=== PATIENT | female | born 1995 | race Caucasian/White ===

== ENCOUNTER 2020-07-01 11:44 | Outpatient (RCR) | payer OTHER, SELFPAY ==
[2020-05-26 08:17] VITALS: BMI 22.2
== END 2020-07-19 23:59 ==
LOC: EMPH 11:44
PROVIDERS: PCP Family Medicine; Referring Provider Family Medicine Geriatric Medicine; Visit Provider Family Medicine Geriatric Medicine
DX: Z03.818 Encounter for observation for suspected exposure to other biological agents ruled out (principal)
CPT/HCPCS: 87426

== ENCOUNTER 2020-08-05 11:21 | Outpatient (RCR) | payer OTHER, SELFPAY ==
[2020-05-26 08:17] VITALS: BMI 22.2
== END 2020-08-19 23:59 ==
LOC: EMPH 11:21
PROVIDERS: PCP Family Medicine; Referring Provider Family Medicine Geriatric Medicine; Visit Provider Family Medicine Geriatric Medicine
DX: Z03.818 Encounter for observation for suspected exposure to other biological agents ruled out (principal)
CPT/HCPCS: 87426

== ENCOUNTER 2020-09-30 10:52 | Outpatient (RCR) | payer OTHER, SELFPAY ==
[2020-05-26 08:17] VITALS: BMI 22.2
[2020-09-15 14:51] VITALS: BMI 22.2
== END 2020-10-17 23:59 ==
LOC: EMPH 10:52
PROVIDERS: PCP Family Medicine; Referring Provider Family Medicine Geriatric Medicine; Visit Provider Family Medicine Geriatric Medicine
DX: Z03.818 Encounter for observation for suspected exposure to other biological agents ruled out (principal)
CPT/HCPCS: 87426

== ENCOUNTER → 2020-10-19 13:58 | Outpatient (CLI) | payer OTHER, SELFPAY ==
[2020-10-14 14:33] VITALS: BMI 22.4
[2020-10-19 14:13] LABS: Absolute Lymphocyte Count 2.35 X10^3/uL (0.83-4.51); Absolute Neutrophil Count 8.6 X10^3/uL (2.0-7.7); Basophil# 0.03 X10^3/uL; Basophil% 0.3 % (0-1); Eosinophil# 0.11 X10^3/uL; Eosinophils% 0.9 % (0-5); Hematocrit 35.6 % (37-47); Hemoglobin 12.5 g/dL (12.0-15.0); Lymphocyte # 2.35 X10^3/ul (4.0); Mean Corp Hgb Conc 35.1 g/dL (32-36); Mean Corpuscular Hgb 30.5 pg (27.0-32.0); Mean Corpuscular Volume 86.8 fL (81-99); Mean Platelet Vol. 9.4 fl (6.2-12.0); Monocyte# 0.64 X10^3/uL; Monocyte% 5.4 % (0-10); NRBC Flagged by Analyzer 0 % (0-5); Neutrophil # 8.59 X10^3/uL (2.7-7.7); Neutrophil % 73.1 % (47-70); Platelet Count 261 K/mm3 (150-450); RBC Distribution Width SD 38.3 fl (35.1-43.9); White Blood Count 11.8 K/mm3 (4.4-11.0)
[2020-10-19 15:15] LABS: HIV - WCH Non-Reactive (Nonreactive); Hepatitis B Surface Antigen Non-Reactive (Nonreactive); Hepatitis C Antibody Non-Reactive (Nonreactive); Rubella IgG Reactive (Nonreactive)
[2020-10-21 13:38] LABS: Syphilis Antibodies Non-reactive
== END ==
PROVIDERS: PCP Family Medicine; Referring Provider Obstetrics & Gynecology; Visit Provider Obstetrics & Gynecology
DX: Z34.90 Encounter for supervision of normal pregnancy, unspecified, unspecified trimester (principal)
CPT/HCPCS: 36415; 85025; 86703; 86762; 86803; 86850; 86900; 86901; 87340

== ENCOUNTER → 2020-12-09 12:26 | Outpatient (CLI) | payer OTHER, SELFPAY ==
[2020-11-11 15:41] VITALS: BMI 22.9
--- NOTE | 2020-12-09 12:28 | US_ITS ---
STUDY: SECOND AND THIRD TRIMESTER OBSTETRICAL ULTRASOUND REASON FOR EXAM: Female, 25 years old Anatomy LMP: Unknown. TECHNIQUE: Transabdominal and Transvaginal TECHNICAL QUALITY: Adequate. PRIOR ULTRASOUND: None. FINDINGS: There is a single intrauterine fetus. The fetus is in a cephalic presentation. There is demonstrated cardiac activity with a heart rate of 155 bpm. There is a normal amniotic fluid volume. The largest amniotic fluid pocket measures 3.3 cm. The placenta is anterior in location and is not low lying. There are Grade 0 placental changes. The cervix measures 4.0 cm in length. The bilateral adnexal regions are normal. BIOMETRY: BPD: 4.7 cm: 20 weeks, 2 days HC: 17.8 cm: 20 weeks, 1 days AC: 14.2 cm: 19 weeks, 4 days FL: 3.4 cm: 20 weeks, 3 days age by current US: 20 weeks, 1 days. ALEXANDR by current US: April 25, 2021. Estimated weight: 331 grams, +/- 50 grams, 27 %. Age by LMP: 20 weeks, 3 days. ALEXANDR by LMP: April 27, 2021. ANATOMY: Cranium: Normal lateral ventricles. Normal choroid plexus. Normal cerebellum. Normal cisterna magna. Normal face, nose and lips. Chest: Normal 4-chamber heart. Abdomen/Pelvis: Normal diaphragm. Normal stomach. Normal abdominal wall. Normal cord insertion. Normal 3 vessel cord. Normal kidneys. Normal bladder. Spine: Normal cervical spine. Normal thoracic spine. Normal lumbar spine. Normal sacrum. Extremities: Normal bilateral upper extremities. Normal bilateral lower extremities. US/OB Anatomy Scan IMPRESSION: Single intrauterine gestation 20 weeks 1 day with estimated date April 25, 2021. No anomalies on routine anatomic survey. Electronically Signed: Myke Alvarado MD at 16:48 EDT , Service support ,
== END ==
PROVIDERS: PCP Family Medicine; Referring Provider Obstetrics & Gynecology; Visit Provider Obstetrics & Gynecology
DX: Z34.90 Encounter for supervision of normal pregnancy, unspecified, unspecified trimester (principal)
CPT/HCPCS: 76805; 76817

== ENCOUNTER → 2021-02-03 12:45 | Outpatient (CLI) | payer OTHER, SELFPAY ==
[2021-01-06 13:06] VITALS: BMI 23.8
[2021-02-03 13:10] LABS: Absolute Lymphocyte Count 1.98 X10^3/uL (0.83-4.51); Absolute Neutrophil Count 8.1 X10^3/uL (2.0-7.7); Basophil# 0.04 X10^3/uL; Basophil% 0.4 % (0-1); Eosinophil# 0.13 X10^3/uL; Eosinophils% 1.2 % (0-5); Hematocrit 33.5 % (37-47); Hemoglobin 11.5 g/dL (12.0-15.0); Lymphocyte # 1.98 X10^3/ul (0.83-4.51); Lymphocyte % 18.2 % (19-41); Mean Corp Hgb Conc 34.3 g/dL (32-36); Mean Corpuscular Hgb 30.7 pg (27.0-32.0); Mean Corpuscular Volume 89.3 fL (81-99); Mean Platelet Vol. 9.2 fl (6.2-12.0); Monocyte# 0.58 X10^3/uL; Monocyte% 5.3 % (0-10); NRBC Flagged by Analyzer 0 % (0-5); Neutrophil # 8.08 X10^3/uL (2.7-7.7); Neutrophil % 74.3 % (47-70); Platelet Count 252 K/mm3 (150-450); RBC Distribution Width CV 12.2 % (11.6-14.6); RBC Distribution Width SD 39.1 fl (35.1-43.9); Red Blood Count 3.75 M/mm3 (4.2-5.4); White Blood Count 10.9 K/mm3 (4.4-11.0)
[2021-02-03 13:36] LABS: Glucose Challenge Gest 1H 50g 95 mg/dL (70-140)
[2021-02-03 14:00] LABS: Syphilis Antibodies Non-reactive
== END ==
LOC: LAB.FUTURE 12:45 → PAVLAB 12:47
PROVIDERS: PCP Family Medicine; Referring Provider Obstetrics & Gynecology; Visit Provider Obstetrics & Gynecology
DX: Z34.82 Encounter for supervision of other normal pregnancy, second trimester (principal)
CPT/HCPCS: 36415; 82950; 85025; 86780

== ENCOUNTER 2021-02-03 13:28 | Outpatient (RCR) | payer OTHER, SELFPAY ==
[2020-10-14 14:33] VITALS: BMI 22.4
[2021-01-06 13:06] VITALS: BMI 23.8
== END 2021-02-16 23:59 ==
LOC: EMPH 13:28
PROVIDERS: PCP Family Medicine; Referring Provider Family Medicine Geriatric Medicine; Visit Provider Family Medicine Geriatric Medicine
DX: Z03.818 Encounter for observation for suspected exposure to other biological agents ruled out (principal)
CPT/HCPCS: 87426

== ENCOUNTER → 2021-03-31 16:42 | Outpatient (CLI) | payer OTHER, SELFPAY ==
[2021-03-31 13:39] VITALS: BMI 23.8
== END ==
PROVIDERS: PCP Family Medicine; Referring Provider Obstetrics & Gynecology; Visit Provider Obstetrics & Gynecology
DX: Z34.82 Encounter for supervision of other normal pregnancy, second trimester (principal)
CPT/HCPCS: 87081

== ENCOUNTER → 2021-04-15 14:52 | Outpatient (CLI) | payer OTHER, SELFPAY ==
--- NOTE | 2021-04-15 15:03 | US_ITS ---
STUDY: SECOND AND THIRD TRIMESTER OBSTETRICAL ULTRASOUND - LIMITED REASON FOR EXAM: Female, 26 years old. Date and size discrepancy. LMP: 07/19/2020. PRIOR ULTRASOUND: 12/09/2020. TECHNIQUE: Transabdominal TECHNICAL QUALITY: Adequate. FINDINGS: There is a single intrauterine fetus. The fetus is in a cephalic presentation. There is demonstrated cardiac activity with a heart rate of 166 bpm. There is a normal amniotic fluid volume. The largest amniotic fluid pocket measures 2.73 cm. The amniotic fluid index (MILA) is 9.17 cm. The placenta is anterior in location and is not low lying. There are Grade 2 placental changes. The cervix measures 2.7 cm in length. BIOMETRY: BPD: 9.11 cm: 36 weeks, 6 days HC: 33.25 cm: 37 weeks, 6 days AC: 29.93 cm: 33 weeks, 6 days FL: 7.25 cm: 37 weeks, 0 days Age by LMP: 30 weeks, 2 days. ALEXANDR by LMP: 04/27/2021. age by prior US: 38 weeks, 4 days. ALEXANDR by prior US: 04/25/2021. age by current US: 36 weeks, 2 days. ALEXANDR by current US: 05/11/2020. Estimated weight: 2690 grams, +/- 403 grams, 7 percentile. Gender: Indeterminant US/OB Limited With Biometrics IMPRESSION: 1. Live single intrauterine at 36 weeks, 2 days. ALEXANDR is 05/11/2021. This is 2 weeks behind expected gestational age by prior ultrasound. 2. EFW 2690 g. This is at the 7th percentile. 3. MILA of 9.17 cm. 4. Anterior grade 2 placenta 5. Vertex presentation Electronically Signed: Beto Doty DO at 16:19 EDT Tel [phone], Service support ,
== END ==
PROVIDERS: Visit Provider Obstetrics & Gynecology
DX: O26.843 Uterine size-date discrepancy, third trimester (principal); Z3A.36 36 weeks gestation of pregnancy
CPT/HCPCS: 76816

== ENCOUNTER 2021-04-16 06:48 | Inpatient (IN) | payer OTHER, SELFPAY ==
[2021-03-31 13:39] VITALS: BMI 23.8
[2021-04-16] VITALS (39 sets, daily range): BP systolic 94–129; BP diastolic 53–81; PULSE 66–98; TEMP 36.2–37.1; O2SAT 94–100; BMI 27.4
[2021-04-16] MEDS: Lactated Ringers 1,000 ML 50 ML IV (08:03)
[2021-04-16 08:17] LABS: Absolute Lymphocyte Count 1.86 X10^3/uL (0.83-4.51); Absolute Neutrophil Count 7.2 X10^3/uL (2.0-7.7); Basophil# 0.03 X10^3/uL; Basophil% 0.3 % (0-1); Eosinophil# 0.15 X10^3/uL; Eosinophils% 1.5 % (0-5); Hematocrit 35.6 % (37-47); Hemoglobin 12.1 g/dL (12.0-15.0); Lymphocyte # 1.86 X10^3/ul (0.83-4.51); Lymphocyte % 18.5 % (19-41); Mean Corpuscular Hgb 30.3 pg (27.0-32.0); Mean Corpuscular Volume 89.2 fL (81-99); Monocyte# 0.78 X10^3/uL; Monocyte% 7.7 % (0-10); NRBC Flagged by Analyzer 0 % (0-5); Neutrophil # 7.19 X10^3/uL (2.7-7.7); Neutrophil % 71.4 % (47-70); Platelet Count 241 K/mm3 (150-450); RBC Distribution Width CV 12.5 % (11.6-14.6); RBC Distribution Width SD 40.9 fl (35.1-43.9); Red Blood Count 3.99 M/mm3 (4.2-5.4); White Blood Count 10.1 K/mm3 (4.4-11.0)
[2021-04-16] MEDS: 0.9% Normal Saline Single 100 ML IV.SOLN. INTRA-UTER (08:21)
[2021-04-16] MEDS: Oxytocin 30 units/NS 500 ml 30 UNITS/500 ML IV.SOLN IV (08:56)
[2021-04-16 10:01] LABS: Chlamydia Trachomatis by PCR Negative (Negative); Neisserai gonorrhoeae by PCR Negative (Negative); Probe Check PASS; Sample Adequacy Control PASS; Specimen Processing Control PASS
[2021-04-16] MEDS: Lactated Ringers 500 ML 999 ML IV ×3 (13:32→19:26)
--- NOTE | 2021-04-16 14:31 | HP.PCM.OB_ITS ---
HPI - General General Date of Admission: 04/16/21 HPI Narrative AMBIKA SANCHES, is a 26 F who presents secondary to IUGR diagnosed yesterday in office. Fundal height was low and growth ultrasound showed MILA of 9 cm and overall growth of 6th percentile. Recommendation to proceed with delivery. She denies any vaginal bleeding loss of fluid and admits good movement. Maternal Data Information ALEXANDR Calculator Estimated Delivery Date Method Current WG Current Estimate 04/25/21 LMP (Certain) 38w 5d PFSH PFSH Medical History Asthma History of tetanus, diphtheria, and acellular pertussis booster vaccination (Tdap) Seasonal allergies Home Medications loratadine 10 mg capsule 10 mg PO DAILY 05/26/20 [History Last Taken 04/16/21 06:00] multivitamin 1 tab PO DAILY 05/26/20 [History Last Taken 04/16/21 06:00] Allergy/AdvReac Type Severity Reaction Status Date / Time amoxicillin [From Augmentin] Allergy Unknown Verified 04/16/21 08:36 clavulanic acid Allergy Unknown Verified 04/15/21 13:22 [From Augmentin] tree nut Allergy Hives Verified 04/15/21 13:22 Family History Mother Hypertension Endometrial cancer Father Hypertension Surgical History H/O removal of cyst [place] teeth extracted Social History adopted: No household members: spouse and family housing: house current occupational status: employed current occupation: [employer]- [employer] pets and animals: Yes Smoking Status: Never smoker second hand exposure: No alcohol intake: current alcohol intake frequency: holidays/special occasions only details: not while substance use type: does not use seatbelt use: always do you feel safe at home: Yes additional social history: - Favian- Rebtel History 2 Elective abortions Hx Para 0 Spontaneous abortions 1 Hx # Term Pregnancies Ectopic pregnancies Hx # Pregnancies Multiple births # of living children 0 Visit Details Expected Delivery Route/Plan Labor Preferences- CB/BF classes: planned 04/02 labor support person: Favian labor intervention preferences: open to standard interventions pain management options preferred: epidural cut cord/dad catch: cord maybe : yes PP control planned: discussed discussed possible routes of delivery and associated risks: discussed possible delivery modalities and possible indications for each including R/B/A of , VAVD, FAVD, and CS. questions answered. special requests: [] Plans flu vaccine: yes tdap vaccine: given rhogam: na LARC form signed: yes movement and labor precautions reviewed. Problem list reviewed and updated with the most current plan of care details and appropriate orders placed. Relevant counseling for the gestational age provided. Continue routine care and follow up unless otherwise noted in visit notes/problem list details OB Flowsheet Initial Weight: Not Recorded Date -?-?-?-?-?-?-?-?-?-?-?-?- EGA Weight BP Urine Prot -?-?-?-?-?-?-?-?-?-?-?-?- Glucose FHR FuHt Pres Dilation -?-?-?-?-?-?-?-?-?-?-?-?- Effaced St Visit Note 10/14/20 -?-?-?-?-?-?-?-?-?-?-?-?- 12w 3d 141 lb 4 oz 136/82 Nega tive -?-?-?-?-?-?-?-?-?-?-?-?- Negative 160 -?-?-?-?-?-?-?-?-?-?-?-?- GP - [facility] from [facility]. Dated by US consistent with LMP. Has not had labs. 11/11/20 -?-?-?-?-?-?-?-?-?-?-?-?- 16w 3d 144 lb 6 oz 108/82 Nega tive -?-?-?-?-?-?-?-?-?-?-?-?- Negative 160 -?-?-?-?-?-?-?-?-?-?-?-?- GP - no cramping or bleeding. Anatomy scan ordered. PRR. 12/09/20 -?-?-?-?-?-?-?-?-?-?-?-?- 20w 3d 150 lb 4 oz 120/78 -?-?-?-?-?-?-?-?-?-?-?-?- 145 -?-?-?-?-?-?-?-?-?-?-?-?- GP - no LOF, VB, DFM, ctx. Anatomy scan today. Having a Girl! Planning Vicente for name - have both liked this name since they were dating. 01/06/21 -?-?-?-?-?-?-?-?-?-?-?-?- 24w 3d 153 lb 118/82 Negative -?-?-?-?-?-?-?-?-?-?-?-?- Negative 140 -?-?-?-?-?-?-?-?-?-?-?-?- SM- no vb lof cr maping doing well 02/03/21 -?-?-?-?-?-?-?--?-?-?-?-?- 28w 3d 158 lb 112/68 Negative -?-?-?-?-?-?-?-?-?-?-?-?- Negative 148 -?-?-?-?-?-?-?-?-?-?-?-?- MH-No VB, LOF. G ood FM. 28 wk labs, tdap and Larc 02/14/21 -?-?-?-?-?-?-?-?-?-?-?-?- 30w 0d 161 lb 4 oz 124/82 Nega tive -?-?-?-?-?-?-?-?-?-?-?-?- Negative 150 30 -?-?-?-?-?-?-?-?-?-?-?-?- GP - no LOF, VB, DFM, ctx. Discussed CB classes. 03/02/21 -?-?-?-?-?-?-?-?-?-?-?-?- 32w 2d 164 lb 112/80 Negative -?-?-?-?-?-?-?-?-?-?-?-?- Negative 145 32 -?-?-?-?-?-?-?-?-?-?-?-?- GP - no LOF, VB, DFM, ctx. Intermittent pelvic back pain - reassurance provided. 03/17/21 -?--?-?-?-?-?-?-?-?-?-?-?- 34w 3d 166 lb 120/84 Negative -?-?-?-?-?-?-?-?-?-?-?-?- Negative 135 33 -?-?-?-?-?-?-?-?-?-?-?-?- SM- no vb lof so me change in fm no reuglar ctx reviewed kick counts 03/31/21 -?-?-?-?-?-?-?-?-?-?-?-?- 36w 3d 169 lb 138/86 Negative -?-?-?-?-?-?-?-?-?-?-?-?- Negative 145 36 Cephalic 0 -?-?-?-?-?-?-?-?-?-?-?-?- GP - no LOF, VB, ctx. Movements now more subtle. NST done today. GP - no LOF, VB, ctx. Moveme nts now more subtle. NST done today. GBS done today 04/06/21 -?-?-?-?-?-?-?-?-?-?-?-?- 37w 2d 170 lb 4 oz 130/86 -?-?-?-?-?-?-?-?-?-?-?-?- 145 37 Cephalic 0 -?-?-?-?-?-?-?-?-?-?-?-?- GP - no LOF, VB, DFM, ctx. Denies complaints. 04/15/21 -?-?-?-?-?-?-?-?-?-?-?-?- 38w 4d 170 lb 122/84 Negative -?-?-?-?-?-?-?-?-?-?-?-?- Negative 145 35 Cephalic 0 .5 -?-?-?-?-?-?-?-?-?-?-?-?- 40 -1 Sm- no vb lof good fm no regular ctx. head low but cervix very posterior. plan growth us fro low FH 04/16/21 -?-?-?-?-?-?-?-?-?-?-?-?- 38w 5d 172 lb 9.951 oz 128/ 74 125/75 129/73 122/76 122/81 126/78 122/65 121/71 117/67 111/72 108/73 118/81 104/70 -?-?-?-?-?--?-?-?-?-?-?-?- -?-?-?-?-?-?-?-?-?-?-?-?- NST FHR Rate Baby A Baseline: 130 Variability:: Moderate Accelerations:: 15 x 15 Decelerations:: None NST Reactive:: Yes FHR Category:: Category I Uterine Activity:: irregular ROS Constitutional Constitutional: Reports systems reviewed and no addt'l complaints, except as documented Eyes Eyes: Denies change in vision ENT HEENT: Reports systems reviewed and no addt'l complaints, except as documented; Denies headache(s) Cardiovascular Cardiovascular: Reports systems reviewed and no addt'l complaints, except as documented; Denies chest pain or dyspnea Respiratory/Chest Respiratory/Chest: Reports systems reviewed and no addt'l complaints, except as documented Gastrointestinal Gastrointestinal: Reports systems reviewed and no addt'l complaints, except as documented; Denies abdominal pain Genitourinary Genitourinary: Reports systems reviewed and no addt'l complaints, except as doc umented, contractions Details: present (irregular) and movement Details: present; Denies dysuria or genital lesions Musculoskeletal Musculoskeletal: Reports systems reviewed and no addt'l complaints, except as documented Neurologic Neurologic: Reports systems reviewed and no addt'l complaints, except as documented Endocrine Endocrinology: Reports systems reviewed and no addt'l complaints, except as documented Vital Signs Vital Signs Vital Signs: 04/16/21 08:17 04/16/21 09:19 04/16/21 10:23 Temperature 98.2 F 98.1 F 98.6 F Temperature Source Temporal Temporal Pulse Rate 79 77 72 Blood Pressure 128/74 H 125/75 H 129/73 H BP Systolic 128 125 129 BP Diastolic 74 75 73 Pulse Ox 98 04/16/21 11:21 04/16/21 12:23 04/16/21 13:22 Temperature 98.2 F 97.9 F 98.2 F Temperature Source Temporal Pulse Rate 72 70 Blood Pressure 122/76 H 122/81 H BP Systolic 122 122 BP Diastolic 76 81 Pulse Ox 98 99 04/16/21 13:23 04/16/21 13:58 04/16/21 14:02 Temperature Temperature Source Pulse Rate 66 68 71 Blood Pressure 126/78 H 122/65 H BP Systolic 126 122 BP Diastolic 78 65 Pulse Ox 99 94 04/16/21 14:03 04/16/21 14:08 04/16/21 14:09 Temperature Temperature Source Pulse Rate 75 73 71 Blood Pressure 121/71 H 117/67 BP Systolic 121 117 BP Diastolic 71 67 Pulse Ox 100 100 04/16/21 14:13 04/16/21 14:18 04/16/21 14:23 Temperature 98.6 F Temperature Source Temporal Pulse Rate 72 77 80 Blood Pressure 111/72 108/73 118/81 H BP Systolic 111 108 118 BP Diastolic 72 73 81 Pulse Ox 100 99 99 04/16/21 14:28 Temperature Temperature Source Pulse Rate 72 Blood Pressure 104/70 BP Systolic 104 BP Diastolic 70 Pulse Ox Weight Weight: 172 lb 9.951 oz Body Mass Index (BMI) 27.4 Physical Exam Const alert, oriented x3, no apparent distress and healthy appearing HEENT normocephalic and moist oral mucous membranes Head and Scalp: atraumatic Neck full ROM, no lymphadenopathy, supple and thyroid normal General: trachea midline Lymph Lymphatic: no lymphadenopathy noted Chest inspection of chest normal Resp normal respiratory effort Cardio regular rate GI normal to inspection, nondistended, normoactive bowel sounds, soft to palpation and non-tender Inspection: gravid external exam normal Manual OB Exam: estimated gestational size appropriate, presentation cephalic, dilated, effaced and station Extremity normal to inspection General Extremity: Negative for edema Skin no rashes or lesions noted Neuro no focal motor deficits and deep tendon reflexes 2+ bilaterally Motor Exam: strength 5/5 throughout and clonus absent Psych mental status grossly normal Labs Labs Labs: Blood Type A POSITIVE Antibody Screen NEGATIVE Hct 35.6 % (37-47) L Hgb 12.1 g/dL (12.0-15.0) Pap Smear Negative Obstetrics US Syphilis Total Ab Non-reactive Rubella IgG Antibody Reactive (Nonreactive) Hep Bs Antigen Non-Reactive (Nonreactive) HIV 1&2 Antibody Non-Reactive (Nonreactive) C.trachomatis DNA (PCR) Negative (Negative) Glucose 1 Hr 50 gm 95 mg/dL (70-140) Assessment & Plan (1) IUGR (intrauterine growth restriction): (2) Uterine size-date discrepancy, third trimester: COMMENT: growth us ordered (3) History of tetanus, diphtheria, and acellular pertussis booster vaccination (Tdap): COMMENT: 02/03/21 (4) H/O miscarriage, currently : (5) Supervision of normal : QUALIFIERS: Trimester: second trimester Normal : other normal Qualified Code(s): Z34.82 - Encounter for supervision of other normal , second trimester COMMENT: PRR ALEXANDR 04/25/2021 Girl! Vicente Spouse: Favian PLAN: Patient presents IOL, plan management for with Pitocin Fletcher bulb AROM as needed. Pain management: Plans epidural. GBS negative. Management of any complications: None I have reviewed the [facility] and made any clinically relevant updates. (6) : QUALIFIERS: Weeks of gestation: 38 weeks Qualified Code(s): Z3A.38 - 38 weeks gestation of COMMENT: declines carrier and genetic. Anatomy US normal; GBS NEG
[2021-04-16] MEDS: fentaNYL-bupivacaine (epidural) 100 ML BAG EPIDURAL ×2 (14:32→19:08)
[2021-04-16] MEDS: Lactated Ringers 1,000 ML 200 ML IV ×2 (17:49→23:33)
[2021-04-16] MEDS: Ondansetron 4 MG/2 ML Vial IV (19:46)
[2021-04-16] MEDS: 0.9% Saline Lock 10 ML Syringe IV (19:46)
[2021-04-17] VITALS (35 sets, daily range): BP systolic 103–138; BP diastolic 59–87; PULSE 66–110; RESP 14–16; TEMP 36.3–37.2; O2SAT 95–100
[2021-04-17] MEDS: 0.9% Normal Saline 1,000 ML IV.SOLN. 400 ML INTRA-UTER
[2021-04-17] MEDS: Lactated Ringers 500 ML 999 ML IV (00:49)
[2021-04-17] MEDS: fentaNYL-bupivacaine (epidural) 100 ML BAG EPIDURAL ×2 (04:23→08:57)
[2021-04-17] MEDS: Lactated Ringers 1,000 ML 200 ML IV ×2 (05:11→09:38)
--- NOTE | 2021-04-17 06:01 | PCM.PN.BLA ---
Progress Note Patient now 4 to 5 cm 70 and 0 station. Inability to increase Pitocin overnight due to minimal variability. Overall reassuring category 2 tracing 130 minimal to moderate variability reactive with early D cells and occasional periodic variable decelerations. Will increase Pitocin
[2021-04-17] MEDS: Amnioinfusion- 0.9% NS 1,000 ML IV.SOLN. 75 ML INTRA-UTER (07:46)
[2021-04-17] MEDS: Sodium Citrate/Citric Acid 30 ML UDC PO (10:12)
--- NOTE | 2021-04-17 10:20 | OP.PCM_ITS ---
Assessment & Plan (1) Category II heart rate tracing during labor and delivery: COMMENT: persistent at 5/90/0 despite interventions, remote from delivery proceed with primary . pitocin x 26 hours and ROM x 16 hours. (2) IUGR (intrauterine growth restriction): (3) : QUALIFIERS: Weeks of gestation: 38 weeks Qualified Code(s): Z3A.38 - 38 weeks gestation of COMMENT: declines carrier and genetic. Anatomy US normal; GBS NEG (4) Supervision of normal : QUALIFIERS: Normal : other normal Trimester: second trimester Qualified Code(s): Z34.82 - Encounter for supervision of other normal , second trimester COMMENT: PRR ALEXANDR 04/25/2021 Girl! Vicente Spouse: Favian (5) delivery delivered: COMMENT: SM IOL IUGR cat II persistent 5 cm girl [facility] Maternal Data Information ALEXANDR Calculator Estimated Delivery Date Method Current WG Current Estimate 04/25/21 LMP (Certain) 38w 6d Final ALEXANDR Source: LMP Gestational age: 39 Details Operative Information Date of Procedure: 04/17/21 Pre-Operative Diagnosis: distress, see A/P Post-Operative Diagnosis: same Indications for : Distress Classification: CELENA Procedure Type: low transverse acid bath mixer #1: Leslye Ding Type of Anesthesia: Epidural Special Medications: none Antibiotic Given: Ancef 2 grams IV x1 and Zithromax 500 mg/5 mL X1 Drain: Fletcher to straight drain Fluids Replaced: crystalloid Findings Description of Procedure: patient admitted for IOL sec IUGR. underwent fb and pitocin, inadequate pitocin for significant portion of labor overnight due to minimal variability, then once reassuring status was confirmed pitocin increased and patient began active labor, developed recurrent variables and lates despite interventions and therefore decision was made for LTCS due to distress and remote from delivery. Patient was prepped and draped in the normal sterile fashion. Pfannenstiel skin incision was made with the scalpel and carried through to the underlying layer of fascia with the scalpel. Fascia was nicked in the midline and the incision extended laterally. The rectus bellies were dissected off superiorly and inferiorly with out complication both sharply and bluntly. The peritoneum was entered digitally. The incision was stretched and a low transverse uterine incision was made with the scalpel. The 's head was delivered atraumatically followed by the anterior and posterior shoulders without complication the rest of the delivered. The cord was clamped and cut and the was handed off to awaiting nurse. The placenta was delivered spontaneously immediately following and was noted to be intact and have a three- vessel cord. The uterus was exteriorized cleared of all clots and debris, and the incision was closed in a double layer closure using #1 Monocryl. The ovaries and fallopian tubes were noted to be within normal limits. The uterus was returned to the maternal abdomen and gutters were cleared of all clots and debris. The peritoneum was closed with 3-0 Monocryl in a running fashion. Gloves were changed prior to fascial closure. Fascia was closed with 0 PDS in a running fashion. Subcutaneous tissue was copiously irrigated and the skin was closed with 3-0 Monocryl in a subcuticular fashion. Mepilex dressing was applied without complication. Patient was taken to recovery in stable condition. It was discussed with the patient that based on the clinical information obtained during this encounter, combined with her history, at this time I would recommend cesareans for future deliveries if further pregnancies are desired. Amniotic Membrane Rupture Type: Artificial Amniotic Fluid Description: Clear Placental Delivery Description: Spontaneous Placenta Disposition: [facility] Cord Vessel Description: 3 Vessels Cord Entanglement: None Delayed Cord Clamping: Yes Complications Risks of Surgery Discussed w/Patient: Bleeding, Infection and Injury to surrounding structure(s) including bowel and bladder Complications: none Admit VTE Documentation VTE Present on Admission: No VTE Mechan Device Prophylaxis: SCD's Procedures Urinary/Genital [id number]: 23720 Delivery [facility]
[2021-04-17] MEDS: Cefazolin 2 GM in 0.9% Normal Saline 100 ML IV (10:22)
--- NOTE | 2021-04-17 10:37 | PLAC_PTH ---
PATIENT: AMBIKA SANCHES LOC: WP U#:[id number] AGE/SX: 26/F ROOM: WP004 RE04/16/[address]: Dr. Catrachita Farah MD : 1995 BED: 1 DIS: 04/19/2021 SPEC #: [id number] RECD: 04/18/21 11:45 STATUS: MARY REMichell #: [id number] MELLISA: 04/17/21 10:[address]: Catrachita Farah DEPT: SURGICAL PATHOLOGY RECD BY: Elie Goff ENTERED: 04/18/21 11:46 SP TYPE: PLACENTA OTHR DR: Deloris Primary Care Phys Tissues: Placenta, NOS Procedures: Surgery Specimen Level V HEADER OPERATION: Primary section PRE-OP DIAGNOSIS: Labor TISSUE SUBMITTED: Placenta MICROSCOPIC DIAGNOSIS Contreras placenta (350 gm): Umbilical cord ? trivascular with no inflammation. Placental membranes ? mild acute chorioamnionitis and deciduitis. Placental disc ? Kevin-Fadi change, focal chorioangiosis and intravillous congestion. AM:selina 04/20/2021 MICROSCOPIC DESCRIPTION Slides are reviewed. GROSS DESCRIPTION SPECIMEN: PLACENTA / CLINICAL INFORMATION: A. Weight: 2.46 kg B. Gestational Age: 38 weeks C. Sex: Female PLACENTAL WEIGHT (POST FIXATION): 350 gm PLACENTAL DIMENSIONS: 18 x 18 x 2.5 cm PLACENTAL SHAPE: Usual ovoid PLACENTAL WEIGHT FOR GESTATIONAL AGE: Within 10-99th percentile MEMBRANES - Present A. Insertion: Marginal B. Site of rupture from edge: At edge of placental disc C. Color of membrane: [place] D. Abnormalities: None UMBILICAL CORD - Present A. Color: [place] B. Insertion: Paracentral C. Length: 27 cm D. Diameter: 1 cm E. Number of vessels: Three F. Abnormalities: None PLACENTAL DISC - Present A. Color of surface: [place] B. surface abnormalities: None C. Maternal cotyledons: Intact with minimal tears D. Attached retro placental clot: No clot E. Cut surface: Dark red and spongy F. Lesions: None G. Separate clot: Absent SECTIONS SUBMITTED: 1. Membrane roll 2. Cord, maternal end 3. Cord, end 4. Placental disc, and maternal surfaces 5. Placental disc, and maternal surfaces 6. Placental disc, and maternal surfaces SJ:selina 04/19/21 TC:2 CPT: 90835
--- NOTE | 2021-04-17 11:04 | PCM.DC ---
Discharge Instructions Diet Discharge Diet: No restrictions Activity Discharge Activity: May Not Drive (for 2 weeks or while taking narcotic pain medications.), May Shower and May Take a Tub Bath (in 7 days) May shower in (days): 0 May resume sexual activity in: 4-6 weeks Weight Bearing Status: Full weight bearing Lifting Restrictions: 20 pounds Dressing / Incision Call your doctor if your incision/area has: Continuous Slow Oozing, Sudden Increased Bleeding, Increased Pain/ Swelling, Increased Redness and Foul Smelling Discharge Call your doctor if you observe: Fever of 101 or Higher and Using more than 1 pad per hour (for 2 hours) Suture Line Care: Avoid Pulling/Pushing and Avoid Pinching/Bending Cleanse incision/area with: Soap & Water and Keep Dressing Clean & Dry Follow Up Care Please Follow Up With: Catrachita Farah MD When: Call [phone] to make an appointment for an incision check in 1-2 weeks. Test Results: Test results from this visit will be discussed in further detail at your follow-up appointment, if applicable. Discharge Plan Admission Admit Date/Time: 04/16/21 06:48 Primary Reason for Your Visit: delivery Attending Provider: Catrachita Farah Primary Care Provider: Care Physician,Deloris Primary Discharge Orders/Prescriptions Prescriptions: New naproxen 250 MG tablet 250 - 500 mg PO Q8H PRN PRN (Reason: MILD PAIN) Qty: 30 RF: 1 oxycodone-acetaminophen [Percocet] 5-325 mg tablet 1 tab PO Q6H PRN (Reason: pain) 7 Days Qty: 20 RF: 0 Continued multivitamin Tablet 1 tab PO DAILY RF: 0 loratadine 10 mg capsule 10 mg PO DAILY RF: 0 Referrals / Follow Up: Care Physician,No Primary [Primary Care Provider] - Disposition Disposition (needs filled in before D/C Order can be placed): Home, Self Care
[2021-04-17] MEDS: Ketorolac 30 MG/ML Syringe IV ×2 (12:15→18:12)
[2021-04-17] MEDS: Oxytocin 30 units/NS 500 ml 30 UNITS/500 ML IV.SOLN 167 UNITS IV (12:48)
[2021-04-17] MEDS: Acetaminophen 500 MG Tablet 1000 MG PO ×2 (13:09→19:21)
[2021-04-17] MEDS: Lactated Ringers 1,000 ML 100 ML IV (16:15)
[2021-04-18] MEDS: 0.9% Saline Lock 10 ML Syringe IV ×2 (00:06→08:19)
[2021-04-18] MEDS: Ketorolac 30 MG/ML Syringe IV ×2 (00:07→08:18)
[2021-04-18] MEDS: Acetaminophen 500 MG Tablet 1000 MG PO ×4 (01:05→21:09)
[2021-04-18 01:06] VITALS: BP 138/73; PULSE 99; RESP 16; TEMP 36.6; O2SAT 98
--- NOTE | 2021-04-18 06:39 | PCM.PN.OB ---
Subjective Subjective Patient doing well without complaints. Tolerating PO. Ambulating and voiding without difficulty. feeding well. Denies chest pain, shortness of breath, calf pain/swelling, fevers, chills, lightheadedness. Objective Data Objective Data Vital Signs: Vital Signs Temp Pulse Resp BP Pulse Ox 97.9 F 99 16 138/73 H 98 04/18/21 01:06 04/18/21 01:06 04/18/21 01:06 04/18/21 01:06 04/18/21 01:06 Oxygen Delivery Method Room Air Weight: 172 lb 9.951 oz Body Mass Index (BMI) 27.4 Intake & Output: Intake and Output for Last 24 Hours 04/16/21 04/17/21 04/18/21 23:59 23:59 23:59 Intake Total 5369.26 / 5369.26 5615.94 / 5615.94 Output Total 3550 / 3550 4850 / 4850 1000 / 1000 Balance 1819.26 / 1819.26 765.94 / 765.94 -1000 / -1000 Lab / Micro Data Result Diagrams: 04/16/21 08:03 Micro: Microbiology 04/16/21 08:03 Nasal Secretion SARS-CoV-2 Antigen (Rapid) - Final ROS Constitutional Constitutional: Reports systems reviewed and no addt'l complaints, except as documented Cardiovascular Cardiovascular: Reports systems reviewed and no addt'l complaints, except as documented Respiratory/Chest Respiratory/Chest: Reports systems reviewed and no addt'l complaints, except as documented Gastrointestinal Gastrointestinal: Reports systems reviewed and no addt'l complaints, except as documented Physical Exam Const alert, oriented x3 and no apparent distress HEENT Head and Scalp: atraumatic Resp normal respiratory effort GI soft to palpation and non-tender Inspection: incision intact, healing well and drainage (none) Bimanual Exam - Vag & Uterus: uterus non-tender Uterus Palpation: uterus fundus firm (below Umbilicus) Assessment & Plan (1) delivery delivered: COMMENT: SM IOL IUGR cat II persistent 5 cm girl [facility] PLAN: s/p LTCS PPD # 1 1. routine post care 2. breast feeding- support given 3. rh positive 4. rubella immune
[2021-04-18 08:54] LABS: Hematocrit 29.3 % (37-47); Hemoglobin 9.7 g/dL (12.0-15.0); Mean Corp Hgb Conc 33.1 g/dL (32-36); Mean Corpuscular Hgb 30.6 pg (27.0-32.0); Mean Corpuscular Volume 92.4 fL (81-99); Mean Platelet Vol. 10.1 fl (6.2-12.0); Platelet Count 166 K/mm3 (150-450); RBC Distribution Width CV 12.7 % (11.6-14.6); RBC Distribution Width SD 42.7 fl (35.1-43.9); Red Blood Count 3.17 M/mm3 (4.2-5.4); White Blood Count 13.1 K/mm3 (4.4-11.0)
[2021-04-18 08:59] VITALS: BP 122/72; PULSE 92; RESP 16; TEMP 37.1; O2SAT 98
[2021-04-18] MEDS: Senna/Docusate Sodium 1 Tablet PO (11:10)
[2021-04-18 14:32] VITALS: BP 121/72; PULSE 97; RESP 16; TEMP 37.4; O2SAT 98
[2021-04-18] MEDS: Naproxen 500 MG Tablet PO ×2 (14:40→23:20)
[2021-04-18 21:08] VITALS: BP 119/64; PULSE 91; RESP 18; TEMP 36.2; O2SAT 96
[2021-04-19] MEDS: Acetaminophen 500 MG Tablet 1000 MG PO ×2 (02:52→09:14)
[2021-04-19 02:55] VITALS: BP 109/55; PULSE 72; RESP 16; TEMP 36.3; O2SAT 96
[2021-04-19] MEDS: Naproxen 500 MG Tablet PO (06:45)
--- NOTE | 2021-04-19 07:49 | PCM.PN.OB ---
Subjective Subjective Patient doing well without complaints. Tolerating PO. Ambulating and voiding without difficulty. Feeding well. Denies chest pain, shortness of breath, calf pain/swelling, fevers, chills, lightheadedness. Objective Data Objective Data Vital Signs: Vital Signs Temp Pulse Resp BP Pulse Ox 97.3 F L 72 16 109/55 L 96 04/19/21 02:55 04/19/21 02:55 04/19/21 02:55 04/19/21 02:55 04/19/21 02:55 Oxygen Delivery Method Room Air Weight: 172 lb 9.951 oz Body Mass Index (BMI) 27.4 Intake & Output: Intake and Output for Last 24 Hours 04/17/21 04/18/21 04/19/21 23:59 23:59 23:59 Intake Total 5615.94 / 5615.94 Output Total 4850 / 4850 1000 / 1000 Balance 765.94 / 765.94 -1000 / -1000 Lab / Micro Data Result Diagrams: 04/18/21 08:25 Labs: Laboratory Results - last 24 hr 04/18/21 08:25: WBC 13.1 H, RBC 3.17 L, Hgb 9.7 L, Hct 29.3 L, MCV 92.4, MCH 30.6, MCHC 33.1, RDW Std Deviation 42.7, RDW Coeff of Kavita 12.7, Plt Count 166, MPV 10.1 Micro: Microbiology 04/16/21 08:03 Nasal Secretion SARS-CoV-2 Antigen (Rapid) - Final Physical Exam Const alert and oriented x3 HEENT normocephalic Eyes PERRL Neck full ROM Resp normal respiratory effort GI soft to palpation GI Narrative: FF below U. Dressing dry and intact Palpation: tender other (appropriately) Assessment & Plan (1) delivery delivered: COMMENT: SM IOL IUGR cat II persistent 5 cm girl way[facility] LTCS PLAN: s/p LTCS PPD # 2 1. routine post care 2. breast feeding- support given 3. rh positive 4. rubella immune 5. home today
[2021-04-19] MEDS: Senna/Docusate Sodium 1 Tablet PO (09:15)
[2021-04-19 10:00] VITALS: BP 114/71; PULSE 68; RESP 16; TEMP 36.5
--- NOTE | 2021-04-20 09:06 | PCM.DC.SUM ---
Providers Date of Admission: 04/16/21 Primary Care Physician: Deloris Primary Care Phys Reason For Visit: PRIMARY Diagnosis Discharge Diagnosis (1) delivery delivered: Status: Acute Code(s): O82 - Encounter for delivery without indication Medications at Discharge Home Medications loratadine 10 mg capsule 10 mg PO DAILY 05/26/20 multivitamin 1 tab PO DAILY 05/26/20 naproxen 250 - 500 mg PO Q8H PRN PRN #30 tab 04/17/21 oxycodone-acetaminophen [Percocet] 1 tab PO Q6H PRN 7 Days #20 tab 04/17/21 Hospital Course Operations section Summary of Care Provided Hospital Course: Patient underwent section with routine recovery, return of normal bowel and bladder function. Ambulating, voiding and tolerating PO. Stable for discharge home POD #3. Weight / BMI Weight Weight: 172 lb 9.951 oz Body Mass Index (BMI) 27.4 ABG / Lab / Microbiology Data Result Diagrams: 04/18/21 08:25 Microbiology: Microbiology 04/16/21 08:03 Nasal Secretion SARS-CoV-2 Antigen (Rapid) - Final D/C Instructions Discharge Diet: No restrictions May shower in (days): 0 May resume sexual activity in: 4-6 weeks Weight Bearing Status: Full weight bearing Call your doctor if your incision/area has: Continuous Slow Oozing, Sudden Increased Bleeding, Increased Pain/ Swelling, Increased Redness and Foul Smelling Discharge Call your doctor if you observe: Fever of 101 or Higher and Using more than 1 pad per hour (for 2 hours) Suture Line Care: Avoid Pulling/Pushing and Avoid Pinching/Bending Cleanse incision/area with: Soap & Water and Keep Dressing Clean & Dry Please Follow Up With: Catrachita Farah MD When: Call [phone] to make an appointment for an incision check in 1-2 weeks. Meaningful Use Info Meaningful Use Diagnoses (Choose all that apply): None applicable Discharge Plan Admission Admit Date/Time: 04/16/21 06:48 Primary Reason for Your Visit: delivery Attending Provider: Catrachita Farah Primary Care Provider: Care Physician,Deloris Primary Discharge Orders/Prescriptions Prescriptions: New naproxen 250 MG tablet 250 - 500 mg PO Q8H PRN PRN (Reason: MILD PAIN) Qty: 30 RF: 1 oxycodone-acetaminophen [Percocet] 5-325 mg tablet 1 tab PO Q6H PRN (Reason: pain) 7 Days Qty: 20 RF: 0 Continued multivitamin Tablet 1 tab PO DAILY RF: 0 loratadine 10 mg capsule 10 mg PO DAILY RF: 0 Referrals / Follow Up: Care Physician,No Primary [Primary Care Provider] - Disposition Disposition (needs filled in before D/C Order can be placed): Home, Self Care
[2021-04-21 10:03] LABS: Pathology Specimen OB SEE PATHOLOGY REPORT
== END 2021-04-19 10:40 | disposition home or self-care (01) | DRG 788 ==
PROVIDERS: Admitting Provider Obstetrics & Gynecology; Visit Provider Obstetrics & Gynecology
DX: O77.9 Labor and delivery complicated by fetal stress, unspecified (principal); O36.5930 Maternal care for other known or suspected poor fetal growth, third trimester, not applicable or unspecified; O26.843 Uterine size-date discrepancy, third trimester; Z37.0 Single live birth; Z82.49 Family history of ischemic heart disease and other diseases of the circulatory system; Z85.42 Personal history of malignant neoplasm of other parts of uterus; Z88.0 Allergy status to penicillin; Z88.1 Allergy status to other antibiotic agents; Z91.018 Allergy to other foods; Z3A.38 38 weeks gestation of pregnancy
CPT/HCPCS: 36415; 59025; 59050; 85025; 85027; 86850; 86900; 86901; 87426; 87491; 87591; 88307; 99218; J7030; J7120; A4216; G0378; J2405

== ENCOUNTER → 2021-05-31 15:32 | Outpatient (CLI) | payer OTHER, SELFPAY ==
[2021-06-03 16:54] LABS: HPV Reflexed? NOT INDICATED
== END ==
PROVIDERS: Referring Provider Obstetrics & Gynecology; Visit Provider Obstetrics & Gynecology
DX: Z12.4 Encounter for screening for malignant neoplasm of cervix (principal)
CPT/HCPCS: 88175; G0145

== ENCOUNTER 2021-08-17 12:36 | Outpatient (RCR) | payer OTHER, SELFPAY ==
[2021-02-14 13:45] VITALS: BMI 23.8
== END 2021-08-19 23:59 ==
LOC: EMPH 12:36
PROVIDERS: Referring Provider Family Medicine Geriatric Medicine; Visit Provider Family Medicine Geriatric Medicine
DX: Z03.818 Encounter for observation for suspected exposure to other biological agents ruled out (principal)
CPT/HCPCS: 87426; 87635; U0003; U0005

== ENCOUNTER 2021-09-29 09:46 | Outpatient (RCR) | payer OTHER, SELFPAY ==
[2021-08-20 00:03] VITALS: BMI 23.8
== END 2021-10-17 23:59 ==
LOC: EMPH 09:46
PROVIDERS: Referring Provider Family Medicine Geriatric Medicine; Visit Provider Family Medicine Geriatric Medicine
DX: Z03.818 Encounter for observation for suspected exposure to other biological agents ruled out (principal)
CPT/HCPCS: 87426

== ENCOUNTER → 2022-07-27 | Outpatient (CLI) | payer OTHER, SELFPAY ==
[2022-07-27 15:40] LABS: Absolute Lymphocyte Count 2.56 X10^3/uL (0.83-4.51); Absolute Neutrophil Count 8.8 X10^3/uL (2.0-7.7); Basophil# 0.04 X10^3/uL; Basophil% 0.3 % (0-1); Eosinophil# 0.09 X10^3/uL; Eosinophils% 0.7 % (0-5); Hematocrit 36.8 % (37-47); Hemoglobin 12.9 g/dL (12.0-15.0); Lymphocyte # 2.56 X10^3/ul (0.83-4.51); Mean Corp Hgb Conc 35.1 g/dL (32-36); Mean Corpuscular Hgb 30.4 pg (27.0-32.0); Mean Corpuscular Volume 86.8 fL (81-99); Mean Platelet Vol. 9.7 fl (6.2-12.0); Monocyte# 0.63 X10^3/uL; Monocyte% 5.2 % (0-10); NRBC Flagged by Analyzer 0 % (0-5); Neutrophil # 8.84 X10^3/uL (2.7-7.7); Neutrophil % 72.5 % (47-70); Platelet Count 289 K/mm3 (150-450); RBC Distribution Width CV 11.9 % (11.6-14.6); RBC Distribution Width SD 37.8 fl (35.1-43.9); Red Blood Count 4.24 M/mm3 (4.2-5.4); White Blood Count 12.2 K/mm3 (4.4-11.0)
[2022-07-27 16:37] LABS: HIV - WCH Non-Reactive (Nonreactive); Hepatitis B Surface Antigen Non-Reactive (Nonreactive); Hepatitis C Antibody Non-Reactive (Nonreactive); Rubella IgG Reactive (Nonreactive); Syphilis Antibodies Non-reactive
[2022-07-31 08:07] LABS: Chlamydia By Nucleic Acid AMP Negative (Negative)
[2022-08-01 11:28] LABS: Gonococcus By Nucleic Acid AMP Negative (Negative)
== END | disposition home or self-care (01) ==
LOC: PAVLAB 15:03
PROVIDERS: Referring Provider Obstetrics & Gynecology; Visit Provider Obstetrics & Gynecology
DX: Z34.90 Encounter for supervision of normal pregnancy, unspecified, unspecified trimester (principal)
CPT/HCPCS: 36415; 85025; 86703; 86762; 86780; 86803; 86850; 86900; 86901; 87086; 87340; 87491; 87591

== ENCOUNTER → 2022-09-26 | Outpatient (CLI) | payer OTHER, SELFPAY ==
--- NOTE | 2022-09-26 13:14 | US_ITS ---
STUDY: SECOND AND THIRD TRIMESTER OBSTETRICAL ULTRASOUND REASON FOR EXAM: Female, 27 years old anatomy LMP: 05/16/2022. TECHNIQUE: Transabdominal and Transvaginal TECHNICAL QUALITY: Adequate. PRIOR ULTRASOUND: None. FINDINGS: There is a single intrauterine fetus. The fetus is in a transverse lie with the head on the maternal right side. There is demonstrated cardiac activity with a heart rate of 154 bpm. There is a normal amniotic fluid volume. The largest amniotic fluid pocket measures 3.9 cm x 3.2 cm. The amniotic fluid index (MILA) is within normal limits. The placenta is anterior in location and is not low lying. There are Grade 0 placental changes. The cervix measures 5.8 cm in length. The adnexal regions are not visualized. BIOMETRY: BPD: 4.28 cm: 19 weeks, 0 days HC: 16.3 cm: 19 weeks, 0 days AC: 12.93 cm: 18 weeks, 3 days FL: 2.78 cm: 8 weeks, 3 days CI: 73.4% FL/BPD: 64.9% FL/HC: FL/AC: 21.5% HC/AC: 1.26 age by current US: 18 weeks, 6 days. ALEXANDR by current US: 02/21/2023. Estimated weight: 245 grams, +/- 37 grams, 22 %. Age by LMP: 19 weeks, 0 days. ALEXANDR by LMP: 02/20/2023. ANATOMY: Gender: Male Cranium: Normal lateral ventricles. Normal choroid plexus. Normal cerebellum. Normal cisterna magna. Normal face, nose and lips. Chest: Normal 4-chamber heart. Abdomen/Pelvis: Normal diaphragm. Normal stomach. Normal abdominal wall. Normal cord insertion. Normal 3 vessel cord. Normal kidneys. Normal bladder. Spine: Normal cervical spine. Normal thoracic spine. Normal lumbar spine. Normal sacrum. Extremities: Normal bilateral upper extremities. Normal bilateral lower extremities. IMPRESSION: Single live uterine gestation with a mean gestational age of 18 weeks and 6 days. Electronically Signed: Wolf Anderson MD at 10:41 EST , STUDY: FIRST TRIMESTER OBSTETRICAL ULTRASOUND REASON FOR EXAM: Female, 27 years old . Cervical length measurement. LMP: 05/16/2022 TECHNIQUE: Transvaginal TECHNICAL QUALITY: Adequate. PRIOR ULTRASOUND: None. FINDINGS: Cervical length measures 5.8 cm. US/OB Anatomy Scan IMPRESSION: Cervical length measures 5.8 cm. Electronically Signed: Wolf Anderson MD at 10:42 EST ,
== END | disposition home or self-care (01) ==
LOC: OPUS 13:13
PROVIDERS: Referring Provider Obstetrics & Gynecology; Visit Provider Obstetrics & Gynecology
DX: O09.90 Supervision of high risk pregnancy, unspecified, unspecified trimester (principal)
CPT/HCPCS: 76805; 76817

== ENCOUNTER → 2022-11-28 | Outpatient (CLI) | payer OTHER, SELFPAY ==
[2022-11-28 11:13] LABS: Absolute Lymphocyte Count 1.82 X10^3/uL (0.83-4.51); Absolute Neutrophil Count 8.4 X10^3/uL (2.0-7.7); Basophil# 0.03 X10^3/uL; Basophil% 0.3 % (0-1); Eosinophil# 0.06 X10^3/uL; Eosinophils% 0.6 % (0-5); Hematocrit 35.9 % (37-47); Hemoglobin 12.2 g/dL (12.0-15.0); Lymphocyte # 1.82 X10^3/ul (0.83-4.51); Lymphocyte % 16.8 % (19-41); Mean Corpuscular Hgb 31.1 pg (27.0-32.0); Mean Corpuscular Volume 91.6 fL (81-99); Mean Platelet Vol. 9.5 fl (6.2-12.0); Monocyte# 0.48 X10^3/uL; Monocyte% 4.4 % (0-10); NRBC Flagged by Analyzer 0 % (0-5); Neutrophil # 8.39 X10^3/uL (2.7-7.7); Neutrophil % 77.5 % (47-70); Platelet Count 228 K/mm3 (150-450); RBC Distribution Width CV 12.6 % (11.6-14.6); RBC Distribution Width SD 41.6 fl (35.1-43.9); Red Blood Count 3.92 M/mm3 (4.2-5.4); White Blood Count 10.8 K/mm3 (4.4-11.0)
[2022-11-28 11:44] LABS: Glucose Challenge Gest 1H 50g 113 mg/dL (70-140)
[2022-11-28 12:20] LABS: HIV - WCH Non-Reactive (Nonreactive); Syphilis Antibodies Non-reactive
== END | disposition home or self-care (01) ==
LOC: PAVLAB 10:50
PROVIDERS: Referring Provider Obstetrics & Gynecology; Visit Provider Obstetrics & Gynecology
DX: O09.90 Supervision of high risk pregnancy, unspecified, unspecified trimester (principal); Z13.1 Encounter for screening for diabetes mellitus; Z3A.00 Weeks of gestation of pregnancy not specified
CPT/HCPCS: 36415; 82950; 85025; 86703; 86780

== ENCOUNTER → 2022-12-26 | Outpatient (CLI) | payer OTHER, SELFPAY ==
--- NOTE | 2022-12-26 09:56 | US_ITS ---
STUDY: SECOND AND THIRD TRIMESTER OBSTETRICAL ULTRASOUND - LIMITED REASON FOR EXAM: Female, 27 years old growth -- 32 Weeks LMP: 05/16/2022 PRIOR ULTRASOUND: None. TECHNIQUE: Transabdominal TECHNICAL QUALITY: 09/26/2022. FINDINGS: There is a single intrauterine fetus. The fetus is in a cephalic presentation. There is demonstrated cardiac activity with a heart rate of 150 bpm. There is a normal amniotic fluid volume. The largest amniotic fluid pocket measures 4.7 cm. The amniotic fluid index (MILA) is 14 cm. The placenta is anterior in location and is not low lying. There are Grade 0 placental changes. The cervix measures 4.4 cm in length. BIOMETRY: BPD: 7.8: 31 weeks, 3 days HC: 29.2: 32 weeks, 1 days AC: 27.6: 31 weeks, 5 days FL: 5.8: 30 weeks, 3 days Age by LMP: 32 weeks, 0 days. ALEXANDR by LMP: 02/20/2023. age by prior US: 31 weeks, 6 days. ALEXANDR by prior US: 02/21/2023. age by current US: 31 weeks, 4 days. ALEXANDR by current US: 02/23/2023. Estimated weight: 1752 grams, +/- 263 grams, 22 percentile. Gender: US/OB Limited With Biometrics IMPRESSION: Single live fetus in a vertex presentation. survey not performed on this exam. Placenta is grade 0 and is not low-lying. Cervix is closed. age by current US: 31 weeks, 4 days. ALEXANDR by current US: 02/23/2023. Estimated weight: 1752 grams, +/- 263 grams, 22 percentile. Electronically Signed: Luca Jiménez MD at 18:36 EDT ,
== END | disposition home or self-care (01) ==
LOC: US 09:53
PROVIDERS: Referring Provider Obstetrics & Gynecology; Visit Provider Obstetrics & Gynecology
DX: Z87.59 Personal history of other complications of pregnancy, childbirth and the puerperium (principal)
CPT/HCPCS: 76816

== ENCOUNTER → 2023-01-23 | Outpatient (CLI) | payer OTHER, SELFPAY ==
--- NOTE | 2023-01-23 14:09 | US_ITS ---
STUDY: Ultrasound OB limited 1 or more fetus REASON FOR EXAM: Female, 27 years old growth LMP: 05/16/2022 correlating with 36 weeks 0 days and estimated delivery date February 20, 2023 PRIOR ULTRASOUND: December 26, 2022. TECHNIQUE: Transabdominal OB ultrasound grayscale and color flow and M-mode Doppler FINDINGS: There is a single intrauterine fetus. The fetus is in a cephalic presentation. There is demonstrated cardiac activity with a heart rate of 150 bpm. There is a normal amniotic fluid volume. The largest amniotic fluid pocket measures 4.9 cm. The amniotic fluid index (MILA) is 4.4 cm. The placenta is anterior There are Grade 1 placental changes. The cervix measures 5.9 cm in length and is closed. BIOMETRY: BPD: 8.8 cm: 35 weeks, 2 days HC: 33.0 cm: 37 weeks, 4 days AC: 32.4 cm: 36 weeks, 2 days FL: 7.0 cm: 36 weeks, 0 days age by prior US: 36 weeks, 2 days. ALEXANDR by prior US: February 18, 2023. Estimated weight: 2875 grams, +/- 431 grams, 57 percentile. US/OB Limited With Biometrics IMPRESSION: Single live intrauterine with normal heart rate. growth by biometry is concordant with provided dating Electronically Signed: Bryant Ludny MD at 8:49 EDT ,
== END | disposition home or self-care (01) ==
LOC: OPUS 14:08
PROVIDERS: Referring Provider Obstetrics & Gynecology; Visit Provider Obstetrics & Gynecology
DX: Z34.90 Encounter for supervision of normal pregnancy, unspecified, unspecified trimester (principal); Z3A.30 30 weeks gestation of pregnancy
CPT/HCPCS: 76816

== ENCOUNTER → 2023-01-25 | Outpatient (CLI) | payer OTHER, SELFPAY | END | disposition home or self-care (01) | LOC: LABSPEC 16:09 | PROVIDERS: Referring Provider Obstetrics & Gynecology; Visit Provider Obstetrics & Gynecology | DX: O09.90 Supervision of high risk pregnancy, unspecified, unspecified trimester (principal); Z3A.00 Weeks of gestation of pregnancy not specified | CPT/HCPCS: 87081 ==

== ENCOUNTER 2023-02-13 05:00 | Inpatient (IN) | payer OTHER, SELFPAY ==
[2023-02-13] VITALS (22 sets, daily range): BP systolic 94–119; BP diastolic 56–76; PULSE 63–104; RESP 14–18; TEMP 36.2–36.6; O2SAT 95–100; BMI 28.1
--- NOTE | 2023-02-13 | FALS_PTH ---
PATIENT: AMBIKA SANCHES LOC: WP U#:[id number] AGE/SX: ROOM: WP004 RE02/13/[address]: Dr. Catrachita Farah MD : 1995 BED: 1 DIS: 02/14/2023 SPEC #: [id number] RECD: 02/13/23 11:42 STATUS: MARY LEVINEMichell #: [id number] MELLISA: 02/13/23 00:[address]: Catrachita Farah DEPT: SURGICAL PATHOLOGY RECD BY: Elie Goff Tissues: Fallopian tube Procedures: Surgery Specimen Level II HEADER OPERATION: Tubal ligation PRE-OP DIAGNOSIS: Sterilization TISSUE SUBMITTED: Fallopian tubes MICROSCOPIC DIAGNOSIS Bilateral fallopian tubes, salpingectomy: Bilateral fallopian tubes, no pathologic diagnosis. CHANDLER:selina 02/14/2023 MICROSCOPIC DESCRIPTION Slides are reviewed. GROSS DESCRIPTION Received in fixative is one container labeled with the patient's name and designated bilateral fallopian tubes, stitch right. The specimen consists of bilateral fallopian tubes including fimbrial ends. The right fallopian tube measures 7.5 cm in length and 1.0 cm in diameter and left fallopian tube measures 7.0 cm in length and 1.0 cm in diameter. Sections reveal unremarkable cut surfaces. Lehr Cutter sections are submitted in two cassettes as follows: 1 - right fallopian tube, 2 - left fallopian tube. / SJ:rg 02/13/2023 TC:4 CPT: 16255 x2
[2023-02-13] MEDS: Lactated Ringers 1,000 ML 999 ML IV (05:32)
[2023-02-13 05:47] LABS: Absolute Lymphocyte Count 2.23 X10^3/uL (0.83-4.51); Absolute Neutrophil Count 6.8 X10^3/uL (2.0-7.7); Basophil# 0.05 X10^3/uL; Basophil% 0.5 % (0-1); Eosinophil# 0.13 X10^3/uL; Eosinophils% 1.3 % (0-5); Hematocrit 35.3 % (37-47); Hemoglobin 12.2 g/dL (12.0-15.0); Lymphocyte # 2.23 X10^3/ul (0.83-4.51); Lymphocyte % 22.2 % (19-41); Mean Corp Hgb Conc 34.6 g/dL (32-36); Mean Corpuscular Hgb 30.4 pg (27.0-32.0); Mean Platelet Vol. 9.8 fl (6.2-12.0); Monocyte# 0.84 X10^3/uL; Monocyte% 8.4 % (0-10); NRBC Flagged by Analyzer 0 % (0-5); Neutrophil # 6.75 X10^3/uL (2.7-7.7); Neutrophil % 67.1 % (47-70); Platelet Count 215 K/mm3 (150-450); RBC Distribution Width CV 12.3 % (11.6-14.6); RBC Distribution Width SD 39.4 fl (35.1-43.9); Red Blood Count 4.01 M/mm3 (4.2-5.4); White Blood Count 10.1 K/mm3 (4.4-11.0)
[2023-02-13] MEDS: Acetaminophen 500 MG Tablet 1000 MG PO ×4 (06:12→23:57)
[2023-02-13] MEDS: Lactated Ringers 1,000 ML 150 ML IV (06:33)
[2023-02-13] MEDS: Sodium Citrate/Citric Acid 30 ML UDC PO (07:06)
[2023-02-13] MEDS: Clindamycin 900 MG/50 ML BAG 75 MG IV (07:10)
[2023-02-13 08:36] LABS: Syphilis Antibodies Non-reactive
[2023-02-13] MEDS: Oxytocin 15 Units/NS 250ml 15 UNITS/250 ML IV.SOLN 83 UNITS IV (08:45)
--- NOTE | 2023-02-13 08:55 | HP.PCM.OB_ITS ---
HPI - General General Date of Admission: 02/13/23 HPI Narrative AMBIKA SANCHES, is a 27 F who presents fo TCS Maternal Data Information ALEXANDR Calculator Estimated Delivery Date Method Current WG Current Estimate 02/20/23 LMP (Certain) 39w 0d PFSH PFSH Medical History (Updated 02/13/23 @ 08:[address] Catrachita Farah MD) Asthma History of prior with IUGR Seasonal allergies Home Medications loratadine 10 mg capsule 10 mg PO DAILY Check with primary doctor 05/26/20 [History Last Taken 02/12/23 08:00] multivitamin 1 tab PO DAILY Check with primary doctor 05/26/20 [History Last Taken 02/12/23 08:00] naproxen 500 mg tablet 500 mg PO BID PRN PRN Pain #30 tabs 02/13/23 [Rx Last Taken Unknown] oxycodone-acetaminophen 5 mg-325 mg tablet (Percocet) 1 tab PO Q6H PRN pain 7 days #20 tabs 02/13/23 [Rx Last Taken Unknown] Allergy/AdvReac Type Severity Reaction Status Date / Time Seasonal Allergies: Uncoded Allergy Mild Other Verified 02/13/23 06:01 amoxicillin [From Augmentin] Allergy Unknown Verified 02/13/23 06:01 clavulanic acid Allergy Unknown Verified 02/13/23 06:01 [From Augmentin] tree nut Allergy Hives Verified 02/13/23 06:01 Family History Mother Hypertension Endometrial cancer Father Hypertension Heart valve replaced Surgical History (Updated 02/13/23 @ 08:[address] Catrachita Farah MD) H/O removal of cyst History of [place] teeth extracted Social History adopted: No household members: spouse, family and children housing: house current occupational status: employed current occupation: [employer]- [employer] current occupational exposures/hazards: No pets and animals: Yes history of recent travel: No sexually active: Yes Smoking Status: Never smoker second hand exposure: No alcohol intake: current alcohol intake frequency: holidays/special occasions only details: not while substance use type: does not use well-balanced diet: daily or most days caffeine: Yes what type of physical activity do you participate in: walking hipolito/christianity: Jehovah'[employer] Witness seatbelt use: always do you feel safe at home: Yes additional social history: - [employer] History 3 Elective abortions Hx Para 1 Spontaneous abortions 1 Hx # Term Pregnancies Ectopic pregnancies Hx # Pregnancies Multiple births # of living children 1 Past Pregnancies Del. Date Name GA/Weeks Outcome Route Bth Weight Gen Labor Lgth Anesthesia Del Locatn Provider FOB 05/20/20 6 spontaneous 04/17/21 Clarissa 38 live - full term 5lbs 10oz Fem nash 26 hours epidural [facility] Delivery Date: 04/17/21 Last Updated by: Elizabeth Covarrubias Pitocin x26hrs; ROM x16hrs; Cat II tracing distress STAT C/S; AoD @ 5cm; IUGR Visit Details Expected Delivery Route/Plan RLTCS BS 39 weeks Plans Covid status: discussed Flu vaccine: discussed Tdap vaccine: given Rhogam: na LARC form signed: [] movement and labor precautions reviewed. updated with the most current plan of care details and appropriate orders placed. Relevant counseling for the gestational age provided. Continue routine care and follow up unless otherwise noted in visit notes/problem list details OB Flowsheet Initial Weight: Not Recorded Date -?-?-?-?-?-?-?-?-?-?-?-?- EGA Weight BP Urine Prot -?-?-?-?-?-?-?-?-?-?-?-?- Glucose FHR FuHt Pres Dilation -?-?-?-?-?-?-?-?-?-?-?-?- Effaced St Visit Note 07/27/22 -?-?-?--?-?-?-?-?-?-?-?-?- 10w 2d 150 lb 129/77 -?-?-?-?-?-?-?-?-?-?-?-?- 180 -?-?-?-?-?-?-?-?-?-?-?-?- SM- CRL cons wit h lmp 08/24/22 -?-?-?-?-?-?-?-?-?-?-?-?- 14w 2d 153 lb 8 oz 131/85 Nega tive -?-?-?-?-?-?-?-?-?-?-?-?- Negative 160 -?-?-?-?-?-?-?-?-?-?-?-?- SM- no vb crmapi ng 09/21/22 -?-?-?-?-?-?-?-?-?-?-?-?- 18w 2d 154 lb 2 oz 129/79 Nega tive -?-?-?-?-?-?-?-?-?-?-?-?- Negative 159 -?-?-?-?-?-?-?-?-?-?-?-?- JV- no complaint s today. still leaning toward rpt section but not sure. may allow labor if happens spontaneously prior to 39 weeks. 10/17/22 -?-?-?-?-?-?-?-?-?-?-?-?- 22w 0d 158 lb 8 oz 120/68 Nega tive -?-?-?-?-?-?-?-?-?-?-?-?- Negative 156 -?-?-?-?-?-?-?-?-?-?-?-?- MH-No Vb, LOF. G ood FM. Normal anatomy US Boy 11/14/22 -?-?-?-?-?-?-?-?-?-?-?-?- 26w 0d 161 lb 4 oz 114/76 Nega tive -?-?-?-?-?-?-?-?-?-?-?-?- Negative 148 27 -?-?-?-?-?-?-?-?-?-?-?-?- JV- some round l igament pain and pelvic pressure. GCT ordered. No complaints. 11/28/22 -?-?-?-?-?-?-?-?-?-?-?-?- 28w 0d 165 lb 4 oz 111/75 -?-?-?-?-?-?-?-?-?-?-?-?- 140 28 -?-?-?-?-?-?-?-?-?-?-?-?- SM- no vb lof go od fm no regular ctx scheudled cs 12/14/22 -?-?-?-?-?-?-?-?-?-?-?-?- 30w 2d 167 lb 2 oz 110/75 Nega tive -?-?-?-?-?-?-?-?-?-?-?-?- Negative 135 30 -?-?-?-?-?-?-?-?-?-?-?-?- JV- growth ultra sound ordered for 32 weeks and 36 weeks if needed. planning rpt section. larc signed today. 12/28/22 -?-?-?-?-?-?-?-?-?-?-?-?- 32w 2d 168 lb 8 oz 119/87 -?-?-?-?-?-?-?-?-?-?-?-?- 135 31 -?-?-?-?-?-?-?-?-?-?-?-?- Sm- no vb lof go od fm no regular ctx 01/08/23 -?-?-?-?-?-?-?-?-?-?-?-?- 33w 6d 172 lb 2 oz 120/72 Nega tive -?-?-?-?-?-?-?-?-?-?-?-?- Negative 135 34 -?-?-?-?-?-?-?-?-?-?-?-?- SM- no vb lof go od fm n oregular ctx 01/25/23 -?-?-?-?-?-?-?-?-?-?-?-?- 36w 2d 174 lb 6 oz 120/75 Nega tive -?-?-?-?-?-?-?-?-?-?-?-?- Negative 150 36 Cephalic -?-?-?-?-?-?-?-?-?-?-?-?- SM- no vb lof go od fm n oreguar ctx gbs today 02/02/23 -?-?-?-?-?-?-?-?-?-?-?-?- 37w 3d 179 lb 116/77 Negative -?-?-?-?-?-?-?-?-?-?-?-?- Negative 147 37 Cephalic -?-?-?-?-?-?-?-?-?-?-?-?- JV- no lof, vagi nal bleeding, or dec fm. 02/08/23 -?-?-?-?-?-?-?-?-?-?-?-?- 38w 2d 178 lb 2 oz 111/79 -?-?-?-?-?-?-?-?-?-?-?-?- 140 37 Cephalic -?-?-?-?-?-?-?-?-?-?-?-?- SM- no vb lof go od fm no reuglar ctx 02/13/23 -?-?-?-?-?-?-?-?-?-?-?-?- 39w 0d 177 lb 3.2 oz 119/76 119/76 102/58 94/60 96/56 100/60 104/63 107/68 97/64 104/62 102/61 109/58 -?-?-?-?-?-?-?-?-?-?-?-?- -?-?-?-?-?-?-?-?-?-?-?-?- NST FHR Rate Baby A Baseline: 130 ROS Constitutional Constitutional: Reports systems reviewed and no addt'l complaints, except as documented Eyes Eyes: Denies change in vision ENT HEENT: Reports systems reviewed and no addt'l complaints, except as documented; Denies headache(s) Cardiovascular Cardiovascular: Reports systems reviewed and no addt'l complaints, except as documented; Denies chest pain or dyspnea Respiratory/Chest Respiratory/Chest: Reports systems reviewed and no addt'l complaints, except as documented Gastrointestinal Gastrointestinal: Reports systems reviewed and no addt'l complaints, except as documented; Denies abdominal pain Genitourinary Genitourinary: Reports systems reviewed and no addt'l complaints, except as documented, contractions Details: present (irregular) and movement Details: present; Denies dysuria or genital lesions Musculoskeletal Musculoskeletal: Reports systems reviewed and no addt'l complaints, except as documented Neurologic Neurologic: Reports systems reviewed and no addt'l complaints, except as documented Endocrine Endocrinology: Reports systems reviewed and no addt'l complaints, except as documented Vital Signs Vital Signs Vital Signs: 02/13/23 05:23 02/13/23 05:23 02/13/23 05:24 Temperature Temperature Source Pulse Rate 88 Respiratory Rate Respiratory Pattern Blood Pressure 119/76 Blood Pressure Mean BP Systolic 119 BP Diastolic 76 Blood Pressure Source Blood Pressure Position Blood Pressure Location Baseline BP Pulse Ox 97 Oxygen Delivery Method 02/13/23 05:24 02/13/23 05:25 02/13/23 05:25 Temperature 97.6 F L Temperature Source Temporal Pulse Rate 87 Respiratory Rate Respiratory Pattern Blood Pressure Blood Pressure Mean BP Systolic BP Diastolic Blood Pressure Source Blood Pressure Position Blood Pressure Location Baseline BP Pulse Ox Oxygen Delivery Method 02/13/23 06:09 02/13/23 08:49 Temperature 97.6 F L 97.1 F L Temperature Source Temporal Temporal Pulse Rate 87 70 Respiratory Rate 18 16 Respiratory Pattern Normal Blood Pressure 119/76 102/58 L Blood Pressure Mean 90 72 BP Systolic BP Diastolic Blood Pressure Source Monitor Monitor Blood Pressure Position Semi-Fowlers Semi-Fowlers Blood Pressure Location Left Arm Left Arm Baseline BP 119/76 Pulse Ox 97 99 Oxygen Delivery Method Room Air Room Air Weight Weight: 177 lb 3.2 oz Body Mass Index (BMI) 28.1 Physical Exam Const alert, oriented x3, no apparent distress and healthy appearing HEENT normocephalic and moist oral mucous membranes Head and Scalp: atraumatic Neck full ROM, no lymphadenopathy, supple and thyroid normal General: trachea midline Lymph Lymphatic: no lymphadenopathy noted Chest inspection of chest normal Resp normal respiratory effort Cardio regular rate GI normal to inspection, nondistended, normoactive bowel sounds, soft to palpation and non-tender Inspection: gravid external exam normal Manual OB Exam: estimated gestational size appropriate, presentation cephalic, dilated, effaced and station Extremity normal to inspection General Extremity: Negative for edema
--- NOTE | 2023-02-13 08:55 | PCM.HP.OB ---
HPI - General General Date of Admission: 02/13/23 HPI Narrative AMBIKA SANCHES, is a 27 F who presents fo TCS Maternal Data Information ALEXANDR Calculator Estimated Delivery Date Method Current WG Current Estimate 02/20/23 LMP (Certain) 39w 0d PFSH PFSH Medical History (Updated 02/13/23 @ 08:[address] Catrachita Farah MD) Asthma History of prior with IUGR Seasonal allergies Home Medications loratadine 10 mg capsule 10 mg PO DAILY Check with primary doctor 05/26/20 [History Last Taken 02/12/23 08:00] multivitamin 1 tab PO DAILY Check with primary doctor 05/26/20 [History Last Taken 02/12/23 08:00] naproxen 500 mg tablet 500 mg PO BID PRN PRN Pain #30 tabs 02/13/23 [Rx Last Taken Unknown] oxycodone-acetaminophen 5 mg-325 mg tablet (Percocet) 1 tab PO Q6H PRN pain 7 days #20 tabs 02/13/23 [Rx Last Taken Unknown] Allergy/AdvReac Type Severity Reaction Status Date / Time Seasonal Allergies: Uncoded Allergy Mild Other Verified 02/13/23 06:01 amoxicillin [From Augmentin] Allergy Unknown Verified 02/13/23 06:01 clavulanic acid Allergy Unknown Verified 02/13/23 06:01 [From Augmentin] tree nut Allergy Hives Verified 02/13/23 06:01 Family History Mother Hypertension Endometrial cancer Father Hypertension Heart valve replaced Surgical History (Updated 02/13/23 @ 08:[address] 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 current occupational exposures/hazards: No pets and animals: Yes history of recent travel: No sexually active: Yes Smoking Status: Never smoker second hand exposure: No alcohol intake: current alcohol intake frequency: holidays/special occasions only details: not while substance use type: does not use well-balanced diet: daily or most days caffeine: Yes what type of physical activity do you participate in: walking hipolito/protestant: Quaker seatbelt use: always do you feel safe at home: Yes additional social history: - Favian- [employer] History 3 Elective abortions Hx Para 1 Spontaneous abortions 1 Hx # Term Pregnancies Ectopic pregnancies Hx # Pregnancies Multiple births # of living children 1 Past Pregnancies Del. Date Name GA/Weeks Outcome Route Bth Weight Gen Labor Lgth Anesthesia Del Locatn Provider FOB 05/20/20 6 spontaneous 04/17/21 Clarissa 38 live - full term 5lbs 10oz Female 26 hours epidural [facility] Delivery Date: 04/17/21 Last Updated by: Elizabeth Covarrubias Pitocin x26hrs; ROM x16hrs; Cat II tracing distress STAT C/S; AoD @ 5cm; IUGR Visit Details Expected Delivery Route/Plan RLTCS BS 39 weeks Plans Covid status: discussed Flu vaccine: discussed Tdap vaccine: given Rhogam: na LARC form signed: [] movement and labor precautions reviewed. updated with the most current plan of care details and appropriate orders placed. Relevant counseling for the gestational age provided. Continue routine care and follow up unless otherwise noted in visit notes/problem list details OB Flowsheet Initial Weight: Not Recorded Date <del>?</del> EGA Weight BP Urine Prot <del>?</del> Glucose FHR FuHt Pres Dilation <del>?</del> Effaced St Visit Note 07/27/22 <del>?</del> 10w 2d 150 lb 129/77 <del>?</del> 180 <del>?</del> SM- CRL cons with lmp 08/24/22 <del>?</del> 14w 2d 153 lb 8 oz 131/85 Negative <del>?</del> Negative 160 <del>?</del> SM- no vb crmaping 09/21/22 <del>?</del> 18w 2d 154 lb 2 oz 129/79 Negative <del>?</del> Negative 159 <del>?</del> JV- no complaints today. still leaning toward rpt section but not sure. may allow labor if happens spontaneously prior to 39 weeks. 10/17/22 <del>?</del> 22w 0d 158 lb 8 oz 120/68 Negative <del>?</del> Negative 156 <del>?</del> MH-No Vb, LOF. Good FM. Normal anatomy US Boy 11/14/22 <del>?</del> 26w 0d 161 lb 4 oz 114/76 Negative <del>?</del> Negative 148 27 <del>?</del> JV- some round ligament pain and pelvic pressure. GCT ordered. No complaints. 11/28/22 <del>?</del> 28w 0d 165 lb 4 oz 111/75 <del>?</del> 140 28 <del>?</del> SM- no vb lof good fm no regular ctx scheudled cs 12/14/22 <del>?</del> 30w 2d 167 lb 2 oz 110/75 Negative <del>?</del> Negative 135 30 <del>?</del> JV- growth ultrasound ordered for 32 weeks and 36 weeks if needed. planning rpt section. larc signed today. 12/28/22 <del>?</del> 32w 2d 168 lb 8 oz 119/87 <del>?</del> 135 31 <del>?</del> Sm- no vb lof good fm no regular ctx 01/08/23 <del>?</del> 33w 6d 172 lb 2 oz 120/72 Negative <del>?</del> Negative 135 34 <del>?</del> SM- no vb lof good fm n oregular ctx 01/25/23 <del>?</del> 36w 2d 174 lb 6 oz 120/75 Negative <del>?</del> Negative 150 36 Cephalic <del>?</del> SM- no vb lof good fm n oreguar ctx gbs today 02/02/23 <del>?</del> 37w 3d 179 lb 116/77 Negative <del>?</del> Negative 147 37 Cephalic <del>?</del> JV- no lof, vaginal bleeding, or dec fm. 02/08/23 <del>?</del> 38w 2d 178 lb 2 oz 111/79 <del>?</del> 140 37 Cephalic <del>?</del> SM- no vb lof good fm no reuglar ctx 02/13/23 <del>?</del> 39w 0d 177 lb 3.2 oz 119/76 119/76 102/58 94/60 96/56 100/60 104/63 107/68 97/64 104/62 102/61 109/58 <del>?</del> <del>?</del> NST FHR Rate Baby A Baseline: 130 ROS Constitutional Constitutional: Reports systems reviewed and no addt'l complaints, except as documented Eyes Eyes: Denies change in vision ENT HEENT: Reports systems reviewed and no addt'l complaints, except as documented; Denies headache(s) Cardiovascular Cardiovascular: Reports systems reviewed and no addt'l complaints, except as documented; Denies chest pain or dyspnea Respiratory/Chest Respiratory/Chest: Reports systems reviewed and no addt'l complaints, except as documented Gastrointestinal Gastrointestinal: Reports systems reviewed and no addt'l complaints, except as documented; Denies abdominal pain Genitourinary Genitourinary: Reports systems reviewed and no addt'l complaints, except as documented, contractions Details: present (irregular) and movement Details: present; Denies dysuria or genital lesions Musculoskeletal Musculoskeletal: Reports systems reviewed and no addt'l complaints, except as documented Neurologic Neurologic: Reports systems reviewed and no addt'l complaints, except as documented Endocrine Endocrinology: Reports systems reviewed and no addt'l complaints, except as documented Vital Signs Vital Signs Vital Signs: 02/13/23 05:23 02/13/23 05:23 02/13/23 05:24 Temperature Temperature Source Pulse Rate 88 Respiratory Rate Respiratory Pattern Blood Pressure 119/76 Blood Pressure Mean BP Systolic 119 BP Diastolic 76 Blood Pressure Source Blood Pressure Position Blood Pressure Location Baseline BP Pulse Ox 97 Oxygen Delivery Method 02/13/23 05:24 02/13/23 05:25 02/13/23 05:25 Temperature 97.6 F L Temperature Source Temporal Pulse Rate 87 Respiratory Rate Respiratory Pattern Blood Pressure Blood Pressure Mean BP Systolic BP Diastolic Blood Pressure Source Blood Pressure Position Blood Pressure Location Baseline BP Pulse Ox Oxygen Delivery Method 02/13/23 06:09 02/13/23 08:49 Temperature 97.6 F L 97.1 F L Temperature Source Temporal Temporal Pulse Rate 87 70 Respiratory Rate 18 16 Respiratory Pattern Normal Blood Pressure 119/76 102/58 L Blood Pressure Mean 90 72 BP Systolic BP Diastolic Blood Pressure Source Monitor Monitor Blood Pressure Position Semi-Fowlers Semi-Fowlers Blood Pressure Location Left Arm Left Arm Baseline BP 119/76 Pulse Ox 97 99 Oxygen Delivery Method Room Air Room Air Weight Weight: 177 lb 3.2 oz Body Mass Index (BMI) 28.1 Physical Exam Const alert, oriented x3, no apparent distress and healthy appearing HEENT normocephalic and moist oral mucous membranes Head and Scalp: atraumatic Neck full ROM, no lymphadenopathy, supple and thyroid normal General: trachea midline Lymph Lymphatic: no lymphadenopathy noted Chest inspection of chest normal Resp normal respiratory effort Cardio regular rate GI normal to inspection, nondistended, normoactive bowel sounds, soft to palpation and non-tender Inspection: gravid external exam normal Manual OB Exam: estimated gestational size appropriate, presentation cephalic, dilated, effaced and station Extremity normal to inspection General Extremity: Negative for edema Skin no rashes or lesions noted Neuro no focal motor deficits and deep tendon reflexes 2+ bilaterally Motor Exam: strength 5/5 throughout and clonus absent Psych mental status grossly normal Labs Labs Labs: Blood Type A POSITIVE Antibody Screen NEGATIVE Hct 35.3 % (37-47) L Hgb 12.2 g/dL (12.0-15.0) Pap Smear Negative Obstetrics US Syphilis Total Ab Non-reactive Rubella IgG Antibody Reactive (Nonreactive) Hep Bs Antigen Non-Reactive (Nonreactive) Chlamydia DNA (CANDIDO) Negative (Negative) Neisseria gonorrhoeae DNA (CANDIDO) Negative (Negative) HIV 1&2 Antibody Non-Reactive (Nonreactive) Glucose 1 Hr 50 gm 113 mg/dL (70-140) Rhogam given: No Assessment & Plan (1) Supervision of high-risk : COMMENT: PRR ALEXANDR 02/20/2023 boyKirsten Dusty PC: clarissa. :Favian (2) Sterilization: COMMENT: plan BS at time of RLTCS (3) : QUALIFIERS: Weeks of gestation: 38 weeks Qualified Code(s): Z3A.38 - 38 weeks gestation of COMMENT: Neg GBS genetic and carrier screening discussed, nl anatomy, adequate growth 22% (4) History of : COMMENT: likely plan RLTCS possible if spontaneous labor, previous cs cat II tracing and AOD 5 cm. RLTCS BS scheduled for 02/13 @ 7:10 with (5) History of prior with IUGR : COMMENT: plan 3rd tm US- 57% at 36 weeks PLAN: Plan plan RLTCS BS
--- NOTE | 2023-02-13 08:56 | EX.PCM.OBRPT ---
Assessment & Plan (1) : QUALIFIERS: Weeks of gestation: 38 weeks Qualified Code(s): Z3A.38 - 38 weeks gestation of COMMENT: Neg GBS genetic and carrier screening discussed, nl anatomy, adequate growth 22% (2) Supervision of high-risk : COMMENT: PRR ALEXANDR 02/20/2023 boy. [place] PC: wayne. :Favian (3) Exercise-induced asthma: COMMENT: no inhaler use in 10 years (4) History of prior with IUGR : COMMENT: plan 3rd tm US- 57% at 36 weeks (5) Sterilization: COMMENT: plan BS at time of RLTCS (6) History of : COMMENT: likely plan RLTCS possible if spontaneous labor, previous cs cat II tracing and AOD 5 cm. RLTCS BS scheduled for 02/13 @ 7:10 with (7) delivery delivered: COMMENT: RLTCS BS rubens Segundo 39 Maternal Data Information ALEXANDR Calculator Estimated Delivery Date Method Current WG Current Estimate 02/20/23 LMP (Certain) 39w 0d Final ALEXANDR Source: LMP Details Operative Information Pre-Operative Diagnosis: Previous Post-Operative Diagnosis: same Indications for : Repeat Elective Indications Narrative: Surgeon: Catrachita Farah MD Classification: Scheduled Procedure Type: low transverse Type of Anesthesia: Spinal Special Medications: none Antibiotic Given: Ancef 2 grams IV x1 Drain: Fletcher to straight drain Estimated Blood Loss: 400 Fluids Replaced: crystalloid Findings Description of Procedure: Spinal anesthesia was placed without difficulty. Fletcher catheter was placed. The patient was placed in the dorsal supine position with leftward tilt. Patient was prepped and draped in the normal sterile fashion. Pfannenstiel skin incision was made with the scalpel and carried through to the underlying layer of fascia with the scalpel. Fascia was nicked in the midline and the incision extended laterally. The rectus bellies were dissected off superiorly and inferiorly with out complication both sharply and bluntly. The peritoneum was entered digitally. The incision was stretched and a low transverse uterine incision was made with the scalpel. The infant's head was delivered atraumatically followed by the anterior and posterior shoulders without complication the rest of the infant delivered. The cord was clamped and cut and the infant was handed off to awaiting nurse. The placenta was delivered spontaneously immediately following and was noted to be intact and have a three-vessel cord. The uterus was exteriorized cleared of all clots and debris, and the incision was closed in a single layer closure using #1 Monocryl. Patient had desired sterilization and was counseled preoperatively regarding irreversibility and permanency. Therefore bilateral fallopian tubes were elevated and transected across using a LigaSure device starting proximally to distally without complication the entire fallopian tubes were removed. The ovaries and fallopian tubes were noted to be within normal limits. The uterus was returned to the maternal abdomen and gutters were cleared of all clots and debris. The peritoneum was closed with 3-0 Monocryl in a running fashion. Gloves were changed prior to fascial closure. Fascia was closed with 0 PDS in a running fashion. Subcutaneous tissue was copiously irrigated and the skin was closed with 3-0 Monocryl in a subcuticular fashion. Mepilex dressing was applied without complication. Patient was taken to recovery in stable condition. It was discussed with the patient that based on the clinical information obtained during this encounter, combined with her history, at this time I would recommend cesareans for future deliveries if further pregnancies are desired. Amniotic Membrane Rupture Type: Artificial Amniotic Fluid Description: Clear Placenta Disposition: [facility] Cord Vessel Description: 3 Vessels Delayed Cord Clamping: Yes Complications Risks of Surgery Discussed w/Patient: Bleeding, Infection, Need for Future C-Sections and Injury to surrounding structure(s) including bowel and bladder Vaginal Delivery Complication Complications: None Admit VTE Documentation VTE Present on Admission: No VTE Mechan Device Prophylaxis: SCD's Procedures Urinary/Genital [id number]: [id number] [facility]
[2023-02-13] MEDS: Ketorolac 30 MG/ML Syringe IV ×3 (09:26→21:42)
[2023-02-13 09:41] LABS: Pathology Specimen OB SEE PATHOLOGY REPORT
[2023-02-13] MEDS: Lactated Ringers 1,000 ML 100 ML IV (11:56)
[2023-02-13] MEDS: Senna/Docusate Sodium 1 Tablet PO (11:57)
[2023-02-13] MEDS: 0.9% Saline Lock 10 ML Syringe IV (15:41)
--- NOTE | 2023-02-13 17:43 | DCINST_ITS ---
Discharge Instructions Diet Discharge Diet: No restrictions Activity Discharge Activity: Return to Normal Activity, May Drive (when pain free and off narcotic pain meds), May Shower and May Take a Tub Bath (in 4 weeks) May resume sexual activity in: 6 weeks Weight Bearing Status: Full weight bearing Lifting Restrictions: under 30 lbs for 6 weeks Dressing / Incision Call your doctor if your incision/area has: Continuous Slow Oozing, Sudden Increased Bleeding, Increased Pain/ Swelling, Increased Redness, Foul Smelling Discharge and - Call your doctor if you observe: Fever of 101 or Higher, Using more than 1 pad per hour, Shortness of breath, Chest pain and Uncontrolled pain Suture Line Care: Avoid Pulling/Pushing and Avoid Pinching/Bending Change Dressing in: 1 week (leave open to air after removed) Remove Dressing in: 1 week (if present) Cleanse incision/area with: Soap & Water and Keep Dressing Clean & Dry Follow Up Care Please Follow Up With: Catrachita Farah MD When: Call to make an appointment with your doctor for a postop visit in 2 and 6 weeks. Test Results: Test results from this visit will be discussed in further detail at your follow- up appointment, if applicable. Discharge Plan Admission Admit Date/Time: 02/13/23 05:00 Attending Provider: Catrachita Farah Discharge Orders/Prescriptions Prescriptions: New oxycodone-acetaminophen [Percocet] 5-325 mg tablet 1 tab PO Q6H PRN (Reason: pain) 7 Days Qty: 20 0RF naproxen [naproxen] 500 mg tablet 500 mg PO BID PRN PRN (Reason: Pain) Qty: 30 1RF No Action multivitamin Tablet 1 tab PO DAILY loratadine 10 mg capsule 10 mg PO DAILY Disposition Disposition (needs filled in before D/C Order can be placed): Home, Self Care
[2023-02-14] MEDS: Ketorolac 30 MG/ML Syringe IV (03:35)
[2023-02-14] MEDS: Acetaminophen 500 MG Tablet 1000 MG PO ×2 (06:00→12:29)
[2023-02-14 07:10] LABS: Hematocrit 35.4 % (37-47); Hemoglobin 11.7 g/dL (12.0-15.0); Mean Corp Hgb Conc 33.1 g/dL (32-36); Mean Corpuscular Hgb 30.2 pg (27.0-32.0); Mean Corpuscular Volume 91.2 fL (81-99); Mean Platelet Vol. 10.3 fl (6.2-12.0); Platelet Count 204 K/mm3 (150-450); RBC Distribution Width CV 12.5 % (11.6-14.6); RBC Distribution Width SD 40.8 fl (35.1-43.9); Red Blood Count 3.88 M/mm3 (4.2-5.4); White Blood Count 12.1 K/mm3 (4.4-11.0)
--- NOTE | 2023-02-14 08:12 | PCM.PN.OB ---
Subjective Subjective Patient doing well without complaints. Tolerating PO. Ambulating and voiding without difficulty. Feeding well. Denies chest pain, shortness of breath, calf pain/swelling, fevers, chills, lightheadedness. Objective Data Objective Data Vital Signs: Vital Signs Temp Pulse Resp BP Pulse Ox O2 Del Method 97.6 F L 77 16 115/61 95 Room Air 02/13/23 23:00 02/13/23 23:00 02/13/23 23:00 02/13/23 23:00 02/13/23 23:00 02/13/23 23:00 Oxygen Delivery Method Room Air Weight: 177 lb 3.2 oz Body Mass Index (BMI) 28.1 Intake & Output: Intake and Output for Last 24 Hours 02/12/23 02/13/23 02/14/23 23:59 23:59 23:59 Intake Total 2060.83 / 2060.83 Output Total 2400 / 2400 Balance -339.17 / -339.17 Lab / Micro Data 02/14/23 06:00 Labs: Laboratory Results - last 24 hr 02/13/23 05:31: Syphilis Total Ab Non-reactive 02/14/23 06:00: WBC 12.1 H, RBC 3.88 L, Hgb 11.7 L, Hct 35.4 L, MCV 91.2, MCH 30.2, MCHC 33.1, RDW Std Deviation 40.8, RDW Coeff of Kavita 12.5, Plt Count 204, MPV 10.3 ROS Constitutional Constitutional: Denies chills, fatigue, fever(s), poor appetite or weakness Eyes Eyes: Denies blurry vision, change in vision, seeing flashes or spots in vision ENT HEENT: Denies dizziness, headache(s), loss taste/smell or sore throat Cardiovascular Cardiovascular: Denies chest pain, dizziness, dyspnea, irregular heart rhythm, palpitations or rapid heart rate Respiratory/Chest Respiratory/Chest: Denies chest tightness, cough, dyspnea or breast pain Gastrointestinal Gastrointestinal: Denies abdominal pain, constipation or vomiting Genitourinary Genitourinary: Denies dysuria or flank pain Musculoskeletal Musculoskeletal: Denies difficulty walking, joint pain, limited range of motion or numbness Neurologic Neurologic: Denies abnormal movements, abnormal speech, dizziness, numbness, seizure-like activity or syncope Psychiatric Psychiatric: Denies anxiety, behavioral changes, change in appetite, confusion, depression or suicidal thoughts Physical Exam Const alert, oriented x3 and no apparent distress General Appearance: cooperative and comfortable Resp normal respiratory effort Cardio regular rate GI normal to inspection, nondistended, normoactive bowel sounds GI Narrative: uterus is firm below umbilicus Palpation: soft Back/Spine no CVA tenderness and thoraco-lumbar ROM normal Extremity normal to inspection, no clubbing, cyanosis or edema, no calf tenderness and no pedal edema Psych mental status grossly normal, thought process normal, cooperative, affect normal, speech normal, activity/motor behavior normal, denies homicidal ideation and denies suicidal ideation Assessment & Plan (1) delivery delivered: COMMENT: MARIA R RLTCValentino Segundo 39 PLAN: s/p LTCS PPD # 1 1. routine post care 2. breast feeding- support given 3. rh positive 4. rubella immune 5. wants to go home today. incision is clean and dry.
[2023-02-14 08:50] VITALS: BP 116/73; PULSE 96; RESP 16; TEMP 36.4; O2SAT 96
[2023-02-14] MEDS: Senna/Docusate Sodium 1 Tablet PO (09:15)
[2023-02-14] MEDS: Naproxen 500 MG Tablet PO (12:30)
[2023-02-14 14:00] VITALS: BP 119/72; BP 134/73; PULSE 91; RESP 16; TEMP 36.3; O2SAT 97
== END 2023-02-14 14:50 | disposition home or self-care (01) | DRG 785 ==
PROVIDERS: Admitting Provider Obstetrics & Gynecology; Referring Provider Obstetrics & Gynecology; Visit Provider Obstetrics & Gynecology
PROC: 0UT70ZZ Resection of Bilateral Fallopian Tubes, Open Approach (ICD-10-PCS; CPT 59514; principal; 2023-02-13 06:55)
DX: O34.219 Maternal care for unspecified type scar from previous cesarean delivery (principal); O26.23 Pregnancy care for patient with recurrent pregnancy loss, third trimester; Z30.2 Encounter for sterilization; Z37.0 Single live birth; Z3A.38 38 weeks gestation of pregnancy; Z87.59 Personal history of other complications of pregnancy, childbirth and the puerperium
CPT/HCPCS: 59050; 85025; 85027; 86780; 86850; 86900; 86901; 88302; 99221; J7120; A4216; G0378; J2405

== ENCOUNTER → 2024-05-13 | Outpatient (CLI) | payer OTHER, SELFPAY ==
[2024-05-21 08:48] LABS: HPV Reflexed? NOT INDICATED
== END | disposition home or self-care (01) ==
LOC: LABSPEC 16:33
PROVIDERS: Referring Provider Obstetrics & Gynecology; Visit Provider Obstetrics & Gynecology
DX: Z12.4 Encounter for screening for malignant neoplasm of cervix (principal)
CPT/HCPCS: 88175; G0145

== ENCOUNTER → 2024-05-22 | Outpatient (CLI) | payer OTHER, SELFPAY ==
[2024-05-22 10:03] LABS: Absolute Lymphocyte Count 2.31 X10^3/uL (0.83-4.51); Absolute Neutrophil Count 4.2 X10^3/uL (2.0-7.7); Basophil# 0.05 X10^3/uL; Basophil% 0.7 % (0-1); Eosinophil# 0.21 X10^3/uL; Eosinophils% 2.9 % (0-5); Hematocrit 41.6 % (37-47); Hemoglobin 14.3 g/dL (12.0-15.0); Lymphocyte # 2.31 X10^3/ul (0.83-4.51); Lymphocyte % 31.7 % (19-41); Mean Corp Hgb Conc 34.4 g/dL (32-36); Mean Corpuscular Volume 87.2 fL (81-99); Monocyte# 0.52 X10^3/uL; Monocyte% 7.1 % (0-10); NRBC Flagged by Analyzer 0 % (0-5); Neutrophil # 4.17 X10^3/uL (2.7-7.7); Neutrophil % 57.3 % (47-70); Platelet Count 228 K/mm3 (150-450); RBC Distribution Width CV 12.2 % (11.6-14.6); RBC Distribution Width SD 39.1 fl (35.1-43.9); Red Blood Count 4.77 M/mm3 (4.2-5.4); White Blood Count 7.3 K/mm3 (4.4-11.0)
[2024-05-22 10:26] LABS: Vitamin D,25 Hydroxy 31.1 ng/mL
[2024-05-22 10:31] LABS: Cholesterol 205 mg/dL (200); High Density Lipoprotein 59 mg/dL; Triglycerides 106 mg/dL; Very Low Density Lipoprotein 21 mg/dL (5-40)
== END | disposition home or self-care (01) ==
LOC: PAVLAB 09:50
PROVIDERS: Referring Provider Obstetrics & Gynecology; Visit Provider Obstetrics & Gynecology
DX: N93.9 Abnormal uterine and vaginal bleeding, unspecified (principal); Z13.29 Encounter for screening for other suspected endocrine disorder; Z13.220 Encounter for screening for lipoid disorders; Z13.21 Encounter for screening for nutritional disorder; Z13.1 Encounter for screening for diabetes mellitus
CPT/HCPCS: 36415; 80061; 82306; 83036; 84443; 85025

== ENCOUNTER → 2024-05-26 | Outpatient (CLI) | payer OTHER, SELFPAY ==
--- NOTE | 2024-05-26 14:22 | US_ITS ---
INDICATION: abnormal uterine bleeding EXAMINATION: Ultrasound US Pelvis Non OB Complete With Transvaginal Imaging TECHNIQUE: Transabdominal and transvaginal pelvic ultrasound was performed. Grayscale, spectral waveform, and color flow Doppler evaluation of the adnexa. COMPARISON: Prior study dated: 01/23/2023 FINDINGS: UTERUS: Anteverted. The uterus measures 10.4 x 5.8 x 3.9 cm. There is no uterine mass. The endometrial stripe measures 12 mm in AP diameter which is within normal limits however there is fluid within the endometrial cavity. RIGHT OVARY: 3.1 x 1.9 x 1.2 cm. Non-enlarged, normal echogenicity. There is normal arterial inflow and venous outflow present in the right ovary. LEFT OVARY: 4.5 x 2.8 x 2.5 cm. There is a complex cyst in the left ovary measuring about 2.7 cm which could be hemorrhagic. There is normal arterial inflow and venous outflow present in the left ovary. FREE FLUID: None. US/Pelvic w/ Transvaginal IMPRESSION: 1. Nonspecific fluid within the endometrial cavity. 2. Complex left ovarian cyst could be hemorrhagic. 3. Follow-up exam is recommended. Electronically Signed: Oneal Umana MD at 8:50 EDT ,
== END | disposition home or self-care (01) ==
LOC: US 14:20
PROVIDERS: Referring Provider Obstetrics & Gynecology; Visit Provider Obstetrics & Gynecology
DX: N93.9 Abnormal uterine and vaginal bleeding, unspecified (principal)
CPT/HCPCS: 76830; 76856

== ENCOUNTER → 2024-07-07 | Outpatient (CLI) | payer OTHER, SELFPAY ==
--- NOTE | 2024-07-07 15:13 | US_ITS ---
INDICATION: Abnormal Uterine Bleeding -- 6-8weeks from first US EXAMINATION: Ultrasound US Pelvis Non OB Complete With Transvaginal Imaging TECHNIQUE: Transabdominal and transvaginal pelvic ultrasound was performed. Grayscale, spectral waveform, and color flow Doppler evaluation of the adnexa. COMPARISON: Prior study dated: 05/26/2024 FINDINGS: UTERUS: Anteverted. The uterus measures 10.4 x 5.4 x 4.2 cm. There is no uterine mass. The endometrial stripe measures 9 mm in AP diameter which is within normal limits. Nabothian cyst is seen in the cervix. RIGHT OVARY: 2.7 x 1.7 x 1.4 cm. Non-enlarged, normal echogenicity. There is normal arterial inflow and venous outflow present in the right ovary. LEFT OVARY: 4.2 x 2.9 x 2.6 cm. There is a small cyst/prominent follicle measuring about 2.2 cm. There is normal arterial inflow and venous outflow present in the left ovary. Previously noted left ovarian cyst has resolved. The calculated prevoid bladder volume is 497 cc. FREE FLUID: None. US/Pelvic w/ Transvaginal IMPRESSION: Essentially unremarkable pelvic ultrasound. Electronically Signed: Oneal Umana MD at 8:41 EST ,
== END | disposition home or self-care (01) ==
LOC: US 15:07
PROVIDERS: Referring Provider Obstetrics & Gynecology; Visit Provider Obstetrics & Gynecology
DX: N93.9 Abnormal uterine and vaginal bleeding, unspecified (principal)
CPT/HCPCS: 76830; 76856

== ENCOUNTER → 2025-05-18 | Outpatient (CLI) | payer OTHER, SELFPAY ==
[2025-05-18 12:29] LABS: Hematocrit 37.5 % (37-47); Hemoglobin 13.3 g/dL (12.0-15.0); Immature Granulocytes Count 0.020 X10^3/uL (0.0-0.0); Mean Corp Hgb Conc 35.5 g/dL (32-36); Mean Corpuscular Volume 84.7 fL (81-99); Mean Platelet Vol. 10.5 fl (6.2-12.0); NRBC Flagged by Analyzer 0 % (0-5); Platelet Count 222 K/mm3 (150-450); RBC Distribution Width CV 12.3 % (11.6-14.6); RBC Distribution Width SD 37.9 fl (35.1-43.9); Red Blood Count 4.43 M/mm3 (4.2-5.4); White Blood Count 6.0 K/mm3 (4.4-11.0)
== END | disposition home or self-care (01) ==
PROVIDERS: Referring Provider Obstetrics & Gynecology; Visit Provider Obstetrics & Gynecology
DX: N93.9 Abnormal uterine and vaginal bleeding, unspecified (principal)
CPT/HCPCS: 36415; 84443; 85025

== ENCOUNTER → 2025-05-28 | Outpatient (CLI) | payer OTHER, SELFPAY ==
--- NOTE | 2025-05-28 13:39 | US_ITS ---
EXAM: DIAG MAMM W/CAD, BILAT; BILAT BRST MARCELL STAND ALONE; BREAST LIMITED UNILATERAL 05/28/2025 CLINICAL HISTORY: F, Age 30 y/o , BREAST LUMP; RT. MASS TECHNIQUE: Procedure Code: [id number]; BIBILATBRTOM; USBRSTLIMIT Modality: MG; US Procedure: DIAG MAMM W/CAD, BILAT; BILAT BRST MARCELL STAND ALONE; BREAST LIMITED UNILATERAL. COMPARISON: Baseline examination, no priors. FINDINGS: MAMMOGRAM: TISSUE DENSITY: The breasts are heterogeneously dense, which may obscure small masses. The mammogram demonstrates that the patient has dense breasts. Supplemental screening with whole breast ultrasound or MRI may be considered for further evaluation. Bilateral Breast Mammographic Findings: Right breast: Examination performed for the area of clinician in stress/palpable concern in the upper inner right breast. On the present examination, there are no suspicious mammographic findings in the upper inner right breast to correlate with the area of concern. Otherwise, there are no suspicious findings in the right breast. Left breast: No significant masses, calcifications or other abnormalities are identified. ULTRASOUND: Ultrasound performed of the area of clinician interest/palpable concern in the upper inner right breast demonstrates no suspicious sonographic findings. There are no solid masses or abnormal cystic elements. US/Breast Limited Unilateral IMPRESSION: There are no suspicious mammographic or sonographic findings in the area of cli nician interest in the right breast. There is no evidence of malignancy in either breast. OVERALL FINAL ASSESSMENT BI-RADS 1: NEGATIVE RECOMMENDATION: OTHER Additional Recommendation annual screening mammogram is recommended in the aver age risk woman starting at the age of 40. A letter with findings and recommendations will be mailed to the patient. Reading Location: [id number]
--- NOTE | 2025-05-28 14:00 | BI_ITS ---
EXAM: DIAG MAMM W/CAD, BILAT; BILAT BRST MARCELL STAND ALONE; BREAST LIMITED UNILATERAL 05/28/2025 CLINICAL HISTORY: F, Age 30 y/o , BREAST LUMP; RT. MASS TECHNIQUE: Procedure Code: [id number]; BIBILATBRTOM; USBRSTLIMIT Modality: MG; US Procedure: DIAG MAMM W/CAD, BILAT; BILAT BRST MARCELL STAND ALONE; BREAST LIMITED UNILATERAL. COMPARISON: Baseline examination, no priors. FINDINGS: MAMMOGRAM: TISSUE DENSITY: The breasts are heterogeneously dense, which may obscure small masses. The mammogram demonstrates that the patient has dense breasts. Supplemental screening with whole breast ultrasound or MRI may be considered for further evaluation. Bilateral Breast Mammographic Findings: Right breast: Examination performed for the area of clinician in stress/palpable concern in the upper inner right breast. On the present examination, there are no suspicious mammographic findings in the upper inner right breast to correlate with the area of concern. Otherwise, there are no suspicious findings in the right breast. Left breast: No significant masses, calcifications or other abnormalities are identified. ULTRASOUND: Ultrasound performed of the area of clinician interest/palpable concern in the upper inner right breast demonstrates no suspicious sonographic findings. There are no solid masses or abnormal cystic elements. BI/Bilat Brst Marcell Stand Alone IMPRESSION: There are no suspicious mammographic or sonographic findings in the area of cli nician interest in the right breast. There is no evidence of malignancy in either breast. OVERALL FINAL ASSESSMENT BI-RADS 1: NEGATIVE RECOMMENDATION: OTHER Additional Recommendation annual screening mammogram is recommended in the aver age risk woman starting at the age of 40. A letter with findings and recommendations will be mailed to the patient. Reading Location: [id number]
== END | disposition home or self-care (01) ==
LOC: OPBI 13:38
PROVIDERS: Referring Provider Obstetrics & Gynecology; Visit Provider Obstetrics & Gynecology
DX: N63.10 Unspecified lump in the right breast, unspecified quadrant (principal)
CPT/HCPCS: 76642; 77062; 77066; G0279